=== PATIENT | male | born 1955 | race Caucasian/White ===

== ENCOUNTER → 2016-09-16 | Outpatient (CLI) | payer BC ==
[~2016-09-16] MED LIST: ASCO10003 PO; ASPEC325 PO; ASPI81TA28 PO; CRS10 PO; LISI-729 PO; LVNISUNK SQ; MAGNESIUM PO; METO25TA56 PO; NTRGSL/4 UT; OXYC-57 PO; PANT40TA PO; RXC5 PO
[2016-09-16 12:24] LABS: HEMATOCRIT 43.4 % (42-52); MEAN CELL VOLUME 97.1 fL (80-100); MEAN CORPUSCULAR HEMOGLOBIN 34.2 pg (25-34); MEAN CORPUSCULAR HGB CONC 35.3 g/dl (32-36); MEAN PLATELET VOLUME 11.3 fL (7.4-10.4); PLATELET COUNT 160 K/uL (130-400); RED BLOOD COUNT 4.47 M/uL (4.7-6.1); WHITE BLOOD COUNT 8.49 K/uL (4.8-10.8)
[2016-09-16 12:34] LABS: ALT/SGPT 23 U/L (12-78); AST/SGOT 8 U/L (15-37); BLOOD UREA NITROGEN 16 mg/dl (7-18); BUN/CREATININE RATIO 17.1 (10-20); CALCIUM 8.9 mg/dl (8.5-10.1); CARBON DIOXIDE 30 mmol/L (21-32); CHLORIDE 104 mmol/L (98-107); CREATININE 0.94 mg/dl (0.60-1.40); GLUCOSE 147 mg/dl (70-99); POTASSIUM 4.2 mmol/L (3.5-5.1); SODIUM 141 mmol/L (136-145)
[2016-09-16 12:39] LABS: ESTIMATED AVERAGE GLUCOSE 143 mg/dl; HA1C FLAG Normal (Normal)
[2016-09-16 12:43] LABS: ALB/GLOB RATIO 1.3 (0.9-2); ALKALINE PHOSPHATASE 95 U/L (45-117); CHOLESTEROL 217 mg/dl (0-200); CHOLESTEROL/HDL RATIO 4.4; HDL CHOLESTEROL 49 mg/dl; LDL CHOLESTEROL CALCULATED 121 mg/dl; TRIGLYCERIDES 233 mg/dl (0-150); VERY LOW DENSITY LIPOPROT CALC 47 mg/dl
[2016-09-16 13:12] LABS: RATIO 24.3 mcg/mg (0-30.0)
== END | disposition home or self-care (01) ==
LOC: C.LABBFT 07:36
PROVIDERS: ATTEND Internal Medicine
DX: I25.10 Atherosclerotic heart disease of native coronary artery without angina pectoris (principal); Z12.5 Encounter for screening for malignant neoplasm of prostate; E11.9 Type 2 diabetes mellitus without complications

== ENCOUNTER 2017-02-05 10:14 | Inpatient (IN) | payer BC, OTHER ==
[2017-01-27 08:44] VITALS: BMI 21.0
--- NOTE | 2017-01-27 09:21 | PAT Medication Instructions ---
Service Date Jan 27, 2017. Current Home Medication List Ascorbic Acid (Vitamin C), 1,000 MG PO QAM Aspirin (Aspirin Ec), 81 MG PO QAM Lisinopril (Zestril), 5 MG PO QAM Metoprolol Tartrate (Lopressor) (Lopressor), 25 MG PO QAM Nitroglycerin (Nitrostat), 0.4 MG UT PRN Oxycodone/Acetaminophen 5MG/325MG (Percocet 5MG/325MG), 1 TABLET PO Q4H PRN for Pain Pantoprazole (Protonix), 40 MG PO QAM Rosuvastatin Calcium (Crestor *), 10 MG PO QAM [Magnesium], 1 TAB PO PRN Medication Instructions For Your Scheduled Surgery - Check with surgeon/prescribing physician for instructions: Aspirin (Aspirin Ec), 81 MG PO QAM - Hold the following medications the morning of surgery: [Magnesium], 1 TAB PO PRN Lisinopril (Zestril), 5 MG PO QAM Ascorbic Acid (Vitamin C), 1,000 MG PO QAM - Take the following medications the morning of surgery with a sip of water: Rosuvastatin Calcium (Crestor *), 10 MG PO QAM Pantoprazole (Protonix), 40 MG PO QAM Metoprolol Tartrate (Lopressor) (Lopressor), 25 MG PO QAM Nitroglycerin (Nitrostat), 0.4 MG UT PRN (if needed) Oxycodone/Acetaminophen 5MG/325MG (Percocet 5MG/325MG), 1 TABLET PO Q4H PRN for Pain (okay to take up to 4 hours prior to surgery if needed) - Take the following medications as scheduled the night before surgery: [Magnesium], 1 TAB PO PRN Nitroglycerin (Nitrostat), 0.4 MG UT PRN Oxycodone/Acetaminophen 5MG/325MG (Percocet 5MG/325MG), 1 TABLET PO Q4H PRN for Pain (if needed) If you have any questions please call us at [phone] or [phone] or [phone]
--- NOTE | 2017-01-27 10:04 | DIAGNOSTIC IMAGING REPORT ---
CHEST PREADMISSION(PA/LAT) CLINICAL HISTORY: Preoperative chest COMPARISON STUDY: No previous studies for comparison. FINDINGS: The cardiac and mediastinal contours are normal. There is no evidence of focal pulmonary consolidation. There is no evidence of failure. No pleural effusions are visualized.[ Coronary stents are visualized. There is a scoliosis. There are moderate degenerative changes within the thoracic spine. IMPRESSION: No active disease in the chest. Electronically signed by: Tate Aldridge M.D. 01/27/2017 10:02 AM Dictated Date/Time: 01/27/2017 10:02 AM
[2017-01-27 10:50] LABS: URINE APPEARANCE CLEAR (CLEAR); URINE BILIRUBIN NEG (NEG); URINE COLOR YELLOW; URINE NITRITE NEG (NEG); URINE PH 5.5 (4.5-7.5); URINE SPECIFIC GRAVITY 1.011 (1.000-1.030); UROBILINOGEN NEG (NEG)
[2017-01-27 10:52] LABS: MANUAL MICROSCOPIC REQUIRED? NO; REVIEW REQ? NO
[2017-01-27 10:53] LABS: BASO % 0.3 %; BASO ABS # 0.02 K/uL (0-0.2); COMPLETE YES; EOS % 1.5 %; HEMATOCRIT 40.7 % (42-52); IG% 0.3 %; LYMPH % 19.8 %; LYMPH ABS # 1.32 K/uL (1.2-3.4); MEAN CELL VOLUME 94.7 fL (80-100); MEAN CORPUSCULAR HEMOGLOBIN 32.6 pg (25-34); MEAN CORPUSCULAR HGB CONC 34.4 g/dl (32-36); MEAN PLATELET VOLUME 10.5 fL (7.4-10.4); MONO % 8.8 %; NEUT % 69.3 %; PLATELET COUNT 166 K/uL (130-400); WHITE BLOOD COUNT 6.68 K/uL (4.8-10.8)
[2017-01-27 11:00] LABS: BUN/CREATININE RATIO 12.5 (10-20); POTASSIUM 4.2 mmol/L (3.5-5.1)
[2017-01-27 11:02] LABS: CALCIUM 9.4 mg/dl (8.5-10.1)
[2017-02-05] VITALS (8 sets, daily range): BP systolic 121–151; BP diastolic 68–89; PULSE 66–90; TEMP 36.5–36.9; O2SAT 91–100; Ht 172.7 cm; Wt 64.5 kg
[~2017-02-05] VITALS: Ht 172.7 cm; Wt 64.5 kg
[~2017-02-05 10:14] MED LIST changes: -ASPEC325 PO; +CEFAZOLIN 1000MG/55 ML D5W IV SCH; +LACTATED RINGER'S 1000ML 1,000 ML IV SCH; -LVNISUNK SQ; -RXC5 PO
--- NOTE | 2017-02-05 12:49 | History & Physical Bridge Note ---
H&P Re-Evaluation Bridge Note: I have examined the patient, reviewed the History & Physical and in the interval since the performance of the History & Physical I have noted the following changes of clinical significance: No changes noted
--- NOTE | 2017-02-05 12:51 | History and Physical ---
History & Physical Date Feb 05, 2017. Chief Complaint back and leg pain History of Present Illness The patient is a 61 year old male with complaints of Additional History Hepatic Disease: No Endocrine Disorder: No Kidney Disease: No Hypertension: No Heart Disease: No Bleeding Tendencies: No Infectious Diseases: No Allergies Coded Allergies: No Known Allergies (Unverified , 02/05/17) Home Medications Scheduled Ascorbic Acid (Vitamin C), 1,000 MG PO QAM Aspirin (Aspirin Ec), 81 MG PO QAM Lisinopril (Zestril), 5 MG PO QAM Metoprolol Tartrate (Lopressor) (Lopressor), 25 MG PO QAM Nitroglycerin (Nitrostat), 0.4 MG UT PRN Pantoprazole (Protonix), 40 MG PO QAM Rosuvastatin Calcium (Crestor *), 10 MG PO QAM [Magnesium], 1 TAB PO PRN Scheduled PRN Oxycodone/Acetaminophen 5MG/325MG (Percocet 5MG/325MG), 1 TABLET PO Q4H PRN for Pain Physical Examination Skin: warm/dry, no rash Eyes: normal inspection, EOMI, sclerae normal ENT: normal ENT inspection, pharynx normal Head: normocephalic, atraumatic Neck: supple, no adenopathy, trachea midline Respiratory/Chest: lungs clear, normal breath sounds, no respiratory distress Cardiovascular: regular rate, rhythm, no edema, no murmur Abdomen / GI: normal bowel sounds, non tender Back: normal inspection Extremities: normal inspection, normal range of motion Neurologic/Psych: no motor/sensory deficits, alert, normal reflexes, oriented x 3 Diagnosis lumbar stenosis Plan of Treatment decompression fusion L4-S1
[2017-02-05] MEDS ORDERED: MIDAZOLAM HCL 1 MG/ML 2ML VIAL ONE (12:52)
[2017-02-05] MEDS ORDERED: FENTANYL CITRATE INJ 50 MCG/1 ML 2 ML VIAL ONE ×4 (12:52→15:33)
[2017-02-05] MEDS ORDERED: SODIUM CHLORIDE 0.9% PF 50 ML VIAL ONE (13:11)
[2017-02-05] MEDS ORDERED: BACITRACIN 50000 UNIT VIAL ONE (13:11)
[2017-02-05] MEDS ORDERED: BUPIVACAINE/EPINEPHRINE 0.5% MPF 1:200,000 30 ML VIAL ONE (13:11)
[2017-02-05] MEDS ORDERED: HYDROmorphone INJ 2 MG/ML SYR/VIAL ONE ×2 (13:48→15:32)
[2017-02-05] MEDS ORDERED: ETOMIDATE 2 MG/ML 20 ML VIAL IV ONE (14:02)
[2017-02-05] MEDS ORDERED: ROCURONIUM BROMIDE 10 MG/ML 5 ML VIAL ONE (14:02)
[2017-02-05] MEDS ORDERED: NEOSTIGMINE METHYLSULFATE 1 MG/ML 10ML VIAL ONE (14:02)
[2017-02-05] MEDS ORDERED: PROPOFOL IV EMULSION 10 MG/ML 20 ML VIAL IV ONE (14:02)
[2017-02-05] MEDS ORDERED: PHENYLEPHRINE 100MCG/ML 5ML SYR ONE (14:02)
[2017-02-05] MEDS ORDERED: GLYCOPYRROLATE INJ 0.2 MG/ML VIAL ONE (14:02)
[2017-02-05] MEDS ORDERED: DEXAMETHASONE SOD INJ 4 MG/ML VIAL ONE (14:02)
[2017-02-05] MEDS ORDERED: ONDANSETRON INJ 2 MG/ML 2 ML VIAL ONE ×2 (14:02→15:25)
[2017-02-05] MEDS ORDERED: LIDOCAINE HCL 2% 2 ML VIAL (20MG/ML) ONE (14:02)
[2017-02-05] MEDS ORDERED: SODIUM CHLORIDE 0.9% 1000ML 1,000 ML IV SCH (15:10)
--- NOTE | 2017-02-05 15:10 | [facility] Post Operative Brief Note ---
Immediate Operative Summary Operative Date Feb 05, 2017. Pre-Operative Diagnosis Lumbar Stenosis Post-Operative Diagnosis Lumbar Stenosis Procedure(s) Performed decomp fusion Surgeon Dr. Lisa Dejesus Chemical Handler Surgeon(s) Magi Pineda PA-C Estimated Blood Loss 200 Findings stenosis Specimens none per surgeon
[2017-02-05] MEDS ORDERED: hydrOXYzine HCL 25 MG TAB PO PRN (15:15)
[2017-02-05] MEDS ORDERED: NALOXONE HCL 0.4 MG/1 ML VIAL/CARP IV PRN ×2 (15:15)
[2017-02-05] MEDS ORDERED: ONDANSETRON INJ 2 MG/ML 2 ML VIAL IV PRN ×2 (15:15→15:45)
[2017-02-05] MEDS ORDERED: MAGNESIUM HYDROXIDE SUSP 30 ML UDC PO PRN (15:15)
[2017-02-05] MEDS ORDERED: DO NOT ADMINISTER PNEUMOCOCCAL VACCINE PRN ×2 (15:15)
[2017-02-05] MEDS ORDERED: SOD PHOSPHATE/SOD BIPHOSPHATE ENEMA 132 ML BTL PR PRN (15:15)
[2017-02-05] MEDS ORDERED: LORAZEPAM INJ 0.5 MG in SYRINGE 0.75 ML IV PRN (15:15)
[2017-02-05] MEDS ORDERED: ALUMINUM/MAGNESIUM SUSP 30 ML UDC PO PRN (15:15)
[2017-02-05] MEDS ORDERED: BISACODYL 10 MG SUPP PR PRN (15:15)
[2017-02-05] MEDS ORDERED: LORAZEPAM 0.5 MG TAB PO PRN (15:15)
[2017-02-05] MEDS ORDERED: METOCLOPRAMIDE HCL INJ 5 MG/ML 2 ML VIAL IV PRN (15:15)
[2017-02-05] MEDS ORDERED: ACETAMINOPHEN 500 MG TAB PO PRN (15:15)
[2017-02-05] MEDS ORDERED: PROMETHAZINE HCL INJ 12.5 MG in SODIUM CHLORIDE 0.9% 50ML 50 ML IV PRN (15:15)
[2017-02-05] MEDS ORDERED: ACETAMINOPHEN IV 100 ML IV PRN (15:15)
[2017-02-05] MEDS ORDERED: FAMOTIDINE 20 MG TAB PO PRN (15:15)
[2017-02-05] MEDS ORDERED: DO NOT ADMINISTER FLU VACCINE PRN ×3 (15:15)
--- NOTE | 2017-02-05 15:20 | DIAGNOSTIC IMAGING REPORT ---
LUMBAR SPINE, INTRAOPERATIVE FLUOROSCOPY HISTORY: L4 S1 decompression and fusion. FLUOROSCOPY TIME: 23 seconds. FINDINGS: Intraoperative fluoroscopy was provided for the lumbar spine. 2 fluoroscopic spot images were obtained. Posterior decompression fusion from L4 through S1 with pedicle screws and rods. The hardware appears intact. IMPRESSION: Fluoroscopy provided for a L4-S1 posterior decompression and fusion. Electronically signed by: Festus Hogan M.D. 02/05/2017 3:18 PM Dictated Date/Time: 02/05/2017 3:18 PM
[2017-02-05] MEDS ORDERED: HYDROmorphone HCL 0.5MG/ML 50 ML CASSETTE ONE (15:30)
[2017-02-05] MEDS ORDERED: FLOSEAL HEMOSTATIC MATRIX 10ML TOP ONE (15:34)
[2017-02-05] MEDS ORDERED: EpHEDrine SULFATE INJ 50 MG/ML AMP IV PRN (15:45)
[2017-02-05] MEDS ORDERED: ATROPINE SULFATE 0.1 MG/ML 5ML SYR IV PRN (15:45)
[2017-02-05] MEDS ORDERED: PHENYLEPHRINE 100MCG/ML 5ML SYR IV PRN (15:45)
[2017-02-05] MEDS ORDERED: HYDROmorphone INJ 2 MG/ML SYR/VIAL IV PRN (15:45)
--- NOTE | 2017-02-05 15:50 | Anesthesiology Progress Note ---
Anesthesia Post Op Note Date & Time Feb 05, 2017 at 15:49 Vital Signs Pain Intensity: 4 Vital Signs Past 12 Hours Date Time Temp Pulse Resp B/P (MAP) Pulse Ox O2 Delivery O2 Flow Rate FiO2 02/05/17 15:21 36.7 85 16 155/84 100 Mask 10 02/05/17 11:05 36.5 69 18 131/89 99 Room Air Notes Mental Status: alert / awake / arousable, participated in evaluation Pt Amnestic to Procedure: Yes Nausea / Vomiting: adequately controlled Pain: adequately controlled Airway Patency, RR, SpO2: stable & adequate BP & HR: stable & adequate Hydration State: stable & adequate Anesthetic Complications: no major complications apparent
--- NOTE | 2017-02-05 15:53 | OPERATIVE REPORT ---
DATE OF OPERATION: 02/05/2017 PREOPERATIVE DIAGNOSIS: Spinal stenosis. POSTOPERATIVE DIAGNOSIS: Same. PROCEDURES PERFORMED: 1. Lumbar decompression, medial facetectomies, foraminotomies L3-L4, L4-L5, L5-S1. 2. Posterior spinal fusion L4-L5, L5-S1. 3. Placement posterior segmental instrumentation using Orthros rods and screws L4-L5 and L5-S1. 4. Placement of locally harvested morcellized autograft in posterior gutters. 5. Placement of Infuse collagen sponge combined with Mastergraft in Leah bone graft in the posterior gutters. SURGEON: Dr. Dejesus. PHOTOGRAPH FINISHER: Faye Pineda PA-C. Due to the complex nature of the procedure, the entire surgery was performed with the assistant cook of MINDA Padgett.? The observation assistant, under direct supervision, was involved in the actual performance of all aspects of the surgical procedure including hemostasis, tissue retraction and incision, instrument management, patient positioning, and wound closure. ANESTHESIA: General. DISPOSITION: The patient awakened and taken to PACU in stable condition. HISTORY OF PATIENT'S PROBLEMS: This is a 61-year-old male who presents with above-mentioned diagnosis. After failing an extensive course of nonoperative care, elected to undergo the above-mentioned procedure. Risks, benefits, pros, cons, and alternatives were outlined in detail preoperatively. DESCRIPTION OF PROCEDURE: The patient was met with preoperatively, case discussed and all questions were addressed. At that point the patient was taken back to operative suite and after undergoing successful general intubation by department of anesthesia, was placed in prone position on Miles table atop a Venu frame. All bony prominences were well padded and the eyes were inspected to ensure there was no external pressure placed upon them. At this point, lumbar spine was prepped and draped in normal sterile fashion. Sharp dissection with the assistance of Bovie cautery performed down to and exposing the lamina and transverse processes of L4, L5 and sacral ala bilaterally. From a caudal to cephalad fashion, complete laminectomy of L5, L4, partial laminectomy of L3 was performed including medial facetectomies, foraminotomies to address severe lateral recess and foraminal disease. After this was complete, pedicle screws were then placed in L4, L5 and S1 levels bilaterally with the assistance of fluoroscopy and appropriate size lilliam locked into place. This included a crosslink. Transverse processes of L4, L5 and sacral ala were then burred to subcortical bleeding bone. Infuse collagen sponge combined with Mastergraft and locally harvested morselized autograft was placed in the posterior gutters. A 7 flat ROSAURA drain was inserted. Incision was closed with 1-0 Vicryl in the fascia, 2-0 Vicryl subcutaneously, 4-0 Monocryl for final skin closure. Steri-Strips and sterile dressing were placed. The patient was awakened and taken to PACU in stable condition. I attest to the content of the Intraoperative Record and any orders documented therein. Any exception s are noted below.
[2017-02-05] MEDS: HYDROmorphone HCL 0.5MG/ML 50 ML CASSETTE IV PRN ×2 (16:18→23:12)
[2017-02-05] MEDS: LACTATED RINGER'S 1000ML 1,000 ML IV SCH ×2 (19:00→22:34)
[2017-02-05] MEDS: DOCUSATE SODIUM/SENNA 50/8.6MG TAB PO SCH (21:13)
[2017-02-05] MEDS: CEFAZOLIN IV 1,000 MG in DEXTROSE 5% 50ML 50 ML IV SCH (21:13)
[2017-02-05] MEDS: DEXAMETHASONE INJ 6 MG in SYRINGE 0 ML IV SCH (21:14)
[2017-02-06] VITALS (8 sets, daily range): BP systolic 105–137; BP diastolic 68–78; PULSE 70–108; TEMP 36.6–37.2; O2SAT 93–98
[2017-02-06] MEDS: CEFAZOLIN IV 1,000 MG in DEXTROSE 5% 50ML 50 ML IV SCH (03:45)
[2017-02-06] MEDS: DEXAMETHASONE INJ 6 MG in SYRINGE 0 ML IV SCH ×2 (03:46→11:51)
[2017-02-06] MEDS: LACTATED RINGER'S 1000ML 1,000 ML IV SCH (03:46)
[2017-02-06] MEDS ORDERED: NURSING DECISION MEDICATION ORDER SCH (06:00)
[2017-02-06] MEDS ORDERED: DC PCA SCH (06:00)
[2017-02-06] MEDS ORDERED: HYDROmorphone INJ 1 MG/ML SYR IV PRN (06:01)
[2017-02-06 07:10] LABS: COMPLETE YES; HEMATOCRIT 37.1 % (42-52); IG% 0.2 %; LYMPH % 4.7 %; LYMPH ABS # 0.51 K/uL (1.2-3.4); MEAN CELL VOLUME 94.6 fL (80-100); MEAN CORPUSCULAR HEMOGLOBIN 32.9 pg (25-34); MEAN CORPUSCULAR HGB CONC 34.8 g/dl (32-36); MEAN PLATELET VOLUME 10.4 fL (7.4-10.4); MONO % 3.2 %; NEUT % 91.9 %; PLATELET COUNT 156 K/uL (130-400); RED BLOOD COUNT 3.92 M/uL (4.7-6.1); WHITE BLOOD COUNT 10.76 K/uL (4.8-10.8)
[2017-02-06 07:41] LABS: BUN/CREATININE RATIO 16.2 (10-20); CALCIUM 9.1 mg/dl (8.5-10.1); CREATININE 0.94 mg/dl (0.60-1.40); POTASSIUM 4.5 mmol/L (3.5-5.1)
--- NOTE | 2017-02-06 07:49 | Anesthesiology Progress Note ---
Anesthesia Post Op Note Date & Time Feb 06, 2017 at 07:49 Vital Signs Pain Intensity: 3.0 Vital Signs Past 12 Hours Date Time Temp Pulse Resp B/P (MAP) Pulse Ox O2 Delivery O2 Flow Rate FiO2 02/06/17 03:16 36.6 79 16 137/75 (95) 94 Room Air 02/05/17 23:45 Room Air 02/05/17 23:25 36.7 82 16 132/75 (94) 91 Room Air 02/05/17 19:50 36.9 66 16 126/70 (88) 96 Room Air Notes Mental Status: alert / awake / arousable, participated in evaluation Pt Amnestic to Procedure: Yes Nausea / Vomiting: adequately controlled Pain: adequately controlled Airway Patency, RR, SpO2: stable & adequate BP & HR: stable & adequate Hydration State: stable & adequate Anesthetic Complications: no major complications apparent
[2017-02-06] MEDS ORDERED: RXC5 PO (10:50)
--- NOTE | 2017-02-06 10:51 | Discharge Instructions ---
Discharge Instructions Date of Service Feb 06, 2017. Admission Reason for Admission: Lumbar Spinal Stenosis Discharge Discharge Diagnosis / Problem: stenosis Discharge Goals Goal(s): Improve function Activity Recommendations Activity Limitations: per Instructions/Follow-up section . Instructions / Follow-Up Instructions / Follow-Up ACTIVITY RECOMMENDATIONS: SELF CARE INSTRUCTIONS AFTER THORACIC/LUMBAR FUSIONS 1. You may walk to your tolerance. It is good exercise for your legs and back. Expect some back and intermittent leg aches and pains. 2. You may perform "counter-top" level activities (make a sandwich, leana with a project, etc.). 3. No bending or lifting of more than 10 pounds or back twisting of any nature (roll like a log when turning in bed). 4. You may ride in a car for 20-30 minutes at a time. No driving until after your first visit with your doctor. 5. Frequent changes of position and restricting sitting to 30 minutes at a time will help limit the amount of back spasms and stiffness you may experience. 6. You may discontinue the use of ambulatory aids (cane, crutches, etc.) once your strength and confidence allow. 7. You may sequins winder the shower and let water strike your incision when you arrive home at least once daily. Do not take a tub bath, sit in a hot tub or go into a swimming pool until after your first recheck in the office. SPECIAL CARE INSTRUCTIONS: VERY IMPORTANT TO READ AND REVIEW A. Your surgical incision has been closed with a cosmetic suture under the skin that will dissolve in about 6 weeks. In 14 days, you can use a pair of clean scissors and cut the suture that is left outside of the skin at the ends of your incision. 1. The small skin tapes can be removed 7 days after surgery if they have not fallen off by that point. 2. You may keep the wound open to air as much as possible to promote healing after post-op day number 5 unless told otherwise by your doctor. 3. If you think the wound looks like it is becoming infected (redness or worsening drainage) and/or you are experiencing fever, chill or worsening back pain and muscle spasms, contact the office so that we may evaluate you as soon as possible. B. Complications are uncommon, but please contact us if you have any signs or symptoms of: 1. wound infection (fever higher than 102.5 degrees F, redness, separation of wound, drainage, or increasing pain from the incision) 2. blood clots in legs (pain, swelling, redness and warmth in legs) 3. urinary tract infection (fever higher than 102.5 degrees F, burning upon urination or increased frequency of urination) 4. nerve problems (inability to walk on your toes or heels, numbness, loss of bowel or bladder control) 5. any other symptoms that concern you C. Please call the office at if you have any concerns or questions about your operation or recovery. D. No smoking! Smoking drastically decreases the chance of a solid fusion. E. Do not take any anti-inflammatory medications (Indocin, Advil, Motrin, Aspirin, Naprosyn, etc.) as these may inhibit the chance of a solid fusion. Tylenol is okay to take for pain. MANAGING PAIN AFTER SPINAL SURGERY 1. Narcotic medication is intended for short-term use and will be provided for surgical pain. Surgical pain usually lasts for a period of 4-6 weeks. Narcotic medication includes Percocet, Vicodin, Darvocet, Tylenol #3 or Lortab. 2. Longer-term pain is more appropriately treated with non-narcotic medication such as Tylenol ES. 3. Muscle spasm is not appropriately treated with narcotics. Muscle relaxers such as Soma, Flexeril or Skelaxin can be used along with Tylenol ES. 4. Remember that we all live with some "aches and pains". This is not unusual or uncommon after an injury or as we get older. a. Back pain is expected and may include muscle spasms for 4 to 6 weeks after surgery. The pain should gradually improve. If the pain worsens for no apparent reason, please contact the office. b. Intermittent leg pain may also be experienced and should not be concerned about unless it worsens for no apparent reason. If so, please contact the office. 5. We will provide appropriate medication within the normal guidelines of their prescribed use. We will also be very cautious and aware of potential abuse and extended duration of patients' medication needs. a. Pain medications are for your comfort and to assist with sleep and rest so that the tissue can heal. They are not provided in order to return to normal activity and should not be used through the day. To do so or worsening pain at night can result from ongoing tissue damage and development of tolerance to the prescribed medicine. 6. Please allow 2-3 days to process refills. Prescriptions will not be mailed but must be picked up at the office. FOLLOW UP VISIT: Keep your scheduled follow-up appointment. Any questions, please call the office at . Current Hospital Diet Patient's current hospital diet: Regular Diet Discharge Diet Recommended Diet: Regular Diet Procedures Procedures Performed: L4-L5, L5-S1 Lumbar Laminectomy, Decompression; Pedicle Screw Fixation; L4-L5, L5-S1 Posterolateral Fusion; Bone Morphogenetic Protein; Application of Leah Pending Studies Studies pending at discharge: no Medical Emergencies . Who to Call and When: Medical Emergencies: If at any time you feel your situation is an emergency, please call 911 immediately. . Non-Emergent Contact Non-Emergency issues call your: Primary Care Provider . "Provider Documentation" section prepared by Romel Dejesus. . VTE Core Measure Inpt VTE Proph given/why not?: Kianna Ace, TINO's
[2017-02-06] MEDS: OXYCODONE HCL IR 5 MG TAB (IMMEDIATE RELEASE) PO PRN ×3 (11:18→20:44)
--- NOTE | 2017-02-06 11:33 | PROGRESS NOTE ---
DATE: 02/06/2017 DATE: 02/06/2017. SUBJECTIVE: Postop day 1. Back pain controlled. Leg pain improved. Vital signs stable. T-max 36.8. ROSAURA drained 105 mL. Hematocrit this a.m. is 37.1. OBJECTIVE: On exam, he has good strength to testing, appears comfortable. ASSESSMENT: Status post lumbar decompression and fusion. PLAN: At this time, will continue physical therapy, advance his bowel regimen and anticipate home Friday or Friday.
[2017-02-06] MEDS: DOCUSATE SODIUM/SENNA 50/8.6MG TAB PO SCH (20:45)
[2017-02-07] MEDS: OXYCODONE HCL IR 5 MG TAB (IMMEDIATE RELEASE) PO PRN ×6 (01:01→23:39)
[2017-02-07] MEDS: POLYETHYLENE (MIRALAX) 17 GM PACK PO SCH ×4 (05:33→23:37)
[2017-02-07 07:25] VITALS: BP 104/67; PULSE 84; TEMP 36.7; O2SAT 97
[2017-02-07] MEDS ORDERED: KETOROLAC TROMETHAMINE 30 MG/ML VIAL IV STA (11:17)
[2017-02-07] MEDS ORDERED: KETOROLAC TROMETHAMINE 30 MG/ML VIAL IV PRN (11:30)
[2017-02-07 15:32] VITALS: BP 104/63; PULSE 94; TEMP 37; O2SAT 92
--- NOTE | 2017-02-07 17:42 | PROGRESS NOTE ---
DATE: 02/07/2017 SUBJECTIVE: Postop day #2. Back pain controlled. Leg pain improved. Vital signs stable. T-max 36.7. ROSAURA drained 70 mL. On exam, he has good strength to testing, doing well. ASSESSMENT: Status post ____ and fever. PLAN: At this time, we will continue physical therapy and advance his bowel regimen and discharge home tomorrow.
[2017-02-07] MEDS: DOCUSATE SODIUM/SENNA 50/8.6MG TAB PO SCH (21:35)
[2017-02-07 23:07] VITALS: BP 127/77; PULSE 90; TEMP 37.5; O2SAT 94
[2017-02-08] MEDS: OXYCODONE HCL IR 5 MG TAB (IMMEDIATE RELEASE) PO PRN ×3 (04:59→13:03)
[2017-02-08] MEDS: POLYETHYLENE (MIRALAX) 17 GM PACK PO SCH (05:32)
[2017-02-08 07:40] VITALS: BP 107/68; PULSE 86; TEMP 36.9; O2SAT 97
[2017-02-08] MEDS ORDERED: CHLORPROMAZINE HCL INJ 25 MG/ML 2 ML AMP IM ONE ×2 (10:30→11:30)
[2017-02-08] MEDS ORDERED: PROCHLORPERAZINE IV ONE (11:00)
--- NOTE | 2017-02-08 11:19 | DISCHARGE SUMMARY ---
DATE OF DISCHARGE: 02/08/2017 PRINCIPAL DIAGNOSIS: Spinal stenosis. HOSPITAL COURSE FOLLOWS: On 02/05/2017, the patient underwent lumbar decompression and fusion, tolerated this well, and taken to the orthopedic floor postoperatively. Postop day #1, he was up and ambulatory, progressed well to postop day #2 and #3, subsequently discharged to home. Discharge orders and instructions found on the chart for further review.
[2017-02-08 11:48] VITALS: BP 107/68; PULSE 86; TEMP 36.9; O2SAT 97
== END 2017-02-08 14:31 | disposition home or self-care (01) | DRG 460 ==
LOC: C.ACU 10:14 → C.3E 10:46 → ENRESERV 15:57
PROVIDERS: ADMIT Orthopaedic Surgery Orthopaedic Surgery of the Spine; ATTEND Orthopaedic Surgery Orthopaedic Surgery of the Spine
PROC: 0SG10J1 Fusion of 2 or more Lumbar Vertebral Joints with Synthetic Substitute, Posterior Approach, Posterior Column, Open Approach (ICD-10-PCS; principal; 2017-02-05 12:45)
PROC: 0SG10AJ Fusion of 2 or more Lumbar Vertebral Joints with Interbody Fusion Device, Posterior Approach, Anterior Column, Open Approach (ICD-10-PCS; principal; 2017-02-05 12:45)
DX: M48.06 Spinal stenosis, lumbar region (principal); Z79.82 Long term (current) use of aspirin

== ENCOUNTER → 2017-02-21 | Outpatient (CLI) | payer BC ==
[~2017-02-21] MED LIST changes: -CEFAZOLIN 1000MG/55 ML D5W IV SCH; -LACTATED RINGER'S 1000ML 1,000 ML IV SCH; +RXC5 PO
[2017-02-21 12:45] LABS: BLOOD UREA NITROGEN 16 mg/dl (7-18)
== END | disposition home or self-care (01) ==
LOC: C.LABBFT 09:58
PROVIDERS: ATTEND Physician Assistant Medical
DX: M99.83 Other biomechanical lesions of lumbar region (principal)

== ENCOUNTER → 2017-03-28 | Outpatient (CLI) | payer BC ==
[2017-03-28 12:50] LABS: ALT/SGPT 22 U/L (12-78); AST/SGOT 12 U/L (15-37); BLOOD UREA NITROGEN 10 mg/dl (7-18); BUN/CREATININE RATIO 12.2 (10-20); CALCIUM 9.2 mg/dl (8.5-10.1); CARBON DIOXIDE 28 mmol/L (21-32); CHLORIDE 106 mmol/L (98-107); CHOLESTEROL 189 mg/dl (0-200); CREATININE 0.86 mg/dl (0.60-1.40); GLUCOSE 131 mg/dl (70-99); SODIUM 140 mmol/L (136-145)
[2017-03-28 12:53] LABS: ALKALINE PHOSPHATASE 118 U/L (45-117); CHOLESTEROL/HDL RATIO 4.5; HDL CHOLESTEROL 42 mg/dl; LDL CHOLESTEROL CALCULATED 118 mg/dl; TRIGLYCERIDES 146 mg/dl (0-150); VERY LOW DENSITY LIPOPROT CALC 29 mg/dl
[2017-03-28 13:08] LABS: ESTIMATED AVERAGE GLUCOSE 148 mg/dl; HA1C FLAG Normal (Normal)
== END | disposition home or self-care (01) ==
LOC: C.LABBFT 08:14
PROVIDERS: ATTEND Internal Medicine
DX: E11.9 Type 2 diabetes mellitus without complications (principal); E78.5 Hyperlipidemia, unspecified

== ENCOUNTER → 2017-05-28 | Outpatient (CLI) | payer BC ==
[2017-05-28 09:55] LABS: BLOOD UREA NITROGEN 14 mg/dl (7-18); CREATININE 0.88 mg/dl (0.60-1.40)
== END | disposition home or self-care (01) ==
LOC: C.LAB 06:56
PROVIDERS: ATTEND Otolaryngology
DX: H90.5 Unspecified sensorineural hearing loss (principal); H66.90 Otitis media, unspecified, unspecified ear

== ENCOUNTER → 2017-05-30 | Outpatient (CLI) | payer BC ==
[~2017-05-30] MED LIST changes: +GADAVIST IV PRN
--- NOTE | 2017-05-30 08:05 | DIAGNOSTIC IMAGING REPORT ---
MRI OF THE BRAIN COMBO INTERNAL AUDITORY CANAL PROTOCOL CLINICAL HISTORY: Right ear blockage and pain. Suspected nerve damage. COMPARISON STUDY: No priors. TECHNIQUE: MRI of the brain was performed utilizing various T1 and T2-weighted sequences in the axial, sagittal, and coronal planes. Contrast-enhanced sequences were acquired following the administration of 6 cc of Gadavist. Additional high-resolution imaging was performed to the skull base both pre and postcontrast for further assessment of the internal auditory canals. FINDINGS: Brain parenchyma: There is minimal subcortical and periventricular microangiopathic disease. The brain parenchyma is otherwise normal in appearance. There is no hemorrhage or mass effect. There is no restricted diffusion to suggest acute ischemia. No enhancing mass lesion is identified on the postcontrast images. Pierson-white matter differentiation is preserved. No extra-axial fluid collection is seen. The cerebellar tonsils are normal in configuration. Ventricles, sulci, and cisterns: Normal in configuration. Internal auditory canals: There is no enhancing mass lesion identified in the cerebellopontine angle bilaterally. No mass or abnormal enhancement is seen along the course of the internal auditory canals. The middle ear structures are normal as visualized. Pituitary and sella: Unremarkable. Intracranial vasculature: Normal flow voids are maintained at the skull base. Orbits: The bony orbits are grossly intact. Orbital contents are normal in appearance. Sinuses and mastoids: Clear. Calvarium: Unremarkable. Cervical cord: Partially visualized cervical spinal cord is normal in morphology and signal intensity. IMPRESSION: 1. No acute intracranial abnormality. 2. Unremarkable MRI assessment of the internal auditory canals. Electronically signed by: Ramon Conti M.D. 05/30/2017 8:04 AM Dictated Date/Time: 05/30/2017 7:56 AM
== END | disposition home or self-care (01) ==
LOC: C.MRIBC 06:36
PROVIDERS: ATTEND Otolaryngology
DX: H69.80 Other specified disorders of Eustachian tube, unspecified ear (principal)

== ENCOUNTER → 2017-10-21 | Outpatient (CLI) | payer BC ==
[~2017-10-21] MED LIST changes: -GADAVIST IV PRN
[2017-10-21 12:15] LABS: HEMATOCRIT 42.2 % (42-52); HEMOGLOBIN 14.1 g/dL (14.0-18.0); MEAN CELL VOLUME 93.8 fL (80-100); MEAN CORPUSCULAR HEMOGLOBIN 31.3 pg (25-34); MEAN CORPUSCULAR HGB CONC 33.4 g/dl (32-36); MEAN PLATELET VOLUME 10.6 fL (7.4-10.4); PLATELET COUNT 152 K/uL (130-400); RED CELL DISTRIBUTION WIDTH CV 12.7 % (11.5-14.5); RED CELL DISTRIBUTION WIDTH SD 43.5 fL (36.4-46.3); WHITE BLOOD COUNT 5.53 K/uL (4.8-10.8)
[2017-10-21 12:54] LABS: ALBUMIN 3.7 gm/dl (3.4-5.0); ALT/SGPT 19 U/L (12-78); AST/SGOT 12 U/L (15-37); BLOOD UREA NITROGEN 20 mg/dl (7-18); CALCIUM 8.8 mg/dl (8.5-10.1); CARBON DIOXIDE 28 mmol/L (21-32); CREATININE 0.88 mg/dl (0.60-1.40); GLUCOSE 137 mg/dl (70-99); POTASSIUM 4.1 mmol/L (3.5-5.1); SODIUM 138 mmol/L (136-145)
[2017-10-21 13:05] LABS: ALKALINE PHOSPHATASE 136 U/L (45-117); CHOLESTEROL 168 mg/dl (0-200); LDL CHOLESTEROL CALCULATED 105 mg/dl
[2017-10-21 13:51] LABS: HEMOGLOBIN A1C 6.8 % (4.5-5.6)
[2017-10-21 14:03] LABS: CREATININE RANDOM URINE 74.4 mg/dl
== END | disposition home or self-care (01) ==
LOC: C.LABBFT 07:20
PROVIDERS: ATTEND Internal Medicine
DX: E11.9 Type 2 diabetes mellitus without complications (principal); Z12.5 Encounter for screening for malignant neoplasm of prostate

== ENCOUNTER → 2017-12-23 | Day surgery (SDC) | payer BC ==
[2017-12-17 09:29] VITALS: Ht 172.7 cm; Wt 65.0 kg
[~2017-12-23] VITALS: Ht 172.7 cm; Wt 65.0 kg
[~2017-12-23] MED LIST changes: -CRS10 PO; +LIDOCAINE HCL 2% 2 ML VIAL (20MG/ML) ONE; -MAGNESIUM PO; -OXYC-57 PO; +PROPOFOL IV EMULSION 10 MG/ML 20 ML VIAL ONE; -RXC5 PO; +SODIUM CHLORIDE 0.9% 500ML 500 ML IV ONE
--- NOTE | 2017-12-23 11:51 | Endo History and Physical ---
History & Physical Date of Service: December 23, 2017. Chief Complaint: F/u Tubular Adenoma Referring Physician: Nadeem Holliday History of Present Illness 62 yo CM who presents for colonoscopy secondary to history of colon polyps. Past Surgical History Hx Cardiac Surgery: Yes (HEART CATH/1 STENT) Hx Internal Defibrillator: No Hx Pacemaker: No Hx Abdominal Surgery: Yes (KAYLEIGH, INGUINAL HERNIA, BILAT INGUINAL HERNIA REPAIR ) Hx of Implantable Prosthesis: No Hx Post-Op Nausea and Vomiting: No Hx Cancer Surgery: No Hx Thoracic Surgery: No Hx Orthopedic: Yes (LUMBAR FUSION) Hx Urinary Tract Surgery: No Family History None Social History Smoking Status: Former Smoker Hx Substance Use: No Hx Alcohol Use: Yes (RARELY) Allergies Coded Allergies: No Known Allergies (Unverified , 12/17/17) Current Medications Reported Home Medications Medications Dose Route/Sig Max Daily Dose Days Date Category Vitamin C (Ascorbic Acid) 1,000 Mg Tab 1,000 Mg PO QAM 01/27/17 Reported Protonix (Pantoprazole Sodium) 40 Mg Tab 40 Mg PO QAM 01/27/17 Reported Nitrostat (Nitroglycerin) 0.4 Mg Tab 0.4 Mg UT PRN 01/27/17 Reported Lopressor (Metoprolol Tartrate) 25 Mg Tab 25 Mg PO BID 01/27/17 Reported Aspirin Ec (Aspirin) 81 Mg Tab 81 Mg PO QAM 01/27/17 Reported Zestril (Lisinopril) 5 Mg Tab 5 Mg PO QAM 10/11/11 Reported Vital Signs Weight (Kilograms): 65 Height (Feet): 5 Height (Inches): 8 Date Time Temp Pulse Resp B/P (MAP) Pulse Ox O2 Delivery O2 Flow Rate FiO2 12/23/17 11:08 36.6 70 16 129/79 (96) 96 Room Air Physical Exam General Appearance: WD/WN, no apparent distress Respiratory/Chest: Auscultation: breath sounds normal Cardiovascular: Heart Auscultation: RRR Abdomen: Bowel Sounds: normal Inspection & Palpation: soft, non-distended, no tenderness, guarding & rebound Assessment and Plan Assessment: 62 yo CM who presents for colonoscopy secondary to history of colon polyps. Plan: Proceed with colonoscopy.
--- NOTE | 2017-12-23 12:20 | Discharge Instructions ---
Endoscopy Patient Instructions Date / Procedure(s) Performed December 23, 2017. Colonoscopy Allergy Information Coded Allergies: No Known Allergies (Unverified , 12/17/17) Discharge Date / Findings December 23, 2017. Diverticulosis Internal hemorrhoids Medication Instructions Stopped Medication(s): ASA last 12/20/17 OK to resume all medications today as prescribed Reported Home Medications Medications Dose Route/Sig Max Daily Dose Days Date Category Vitamin C (Ascorbic Acid) 1,000 Mg Tab 1,000 Mg PO QAM 01/27/17 Reported Protonix (Pantoprazole Sodium) 40 Mg Tab 40 Mg PO QAM 01/27/17 Reported Nitrostat (Nitroglycerin) 0.4 Mg Tab 0.4 Mg UT PRN 01/27/17 Reported Lopressor (Metoprolol Tartrate) 25 Mg Tab 25 Mg PO BID 01/27/17 Reported Aspirin Ec (Aspirin) 81 Mg Tab 81 Mg PO QAM 01/27/17 Reported Zestril (Lisinopril) 5 Mg Tab 5 Mg PO QAM 10/11/11 Reported Provider Instructions Activity Restrictions - No exercising or heavy lifting for 24 hours. - Do not drink alcohol the day of the procedure. - Do not drive a car or operate machinery until the day after the procedure. - Do not make any important decisions or sign important papers in 24 hours after the procedure. Following Day: - Return to full activity which may include returning to work/school. Diet Start your diet with liquids and light foods (jello, soup, juice, toast). Then eat your usual diet if not nauseated. Treatment For Common After Affects For mild abdominal pain, bloating, or excessive gas: - Rest - Eat lightly - Lie on right side Follow-Up Information Follow-up with Nadeem Holliday as scheduled Anesthesia Information What You Should Know You have had a procedure that required some medicine to reduce anxiety and discomfort. This treatment is called moderate sedation. After receiving the treatment, you may be sleepy, but you will be able to breathe on your own. The effects of the treatment may last for several hours. Follow these instructions along with Activity/Diet recommendations noted above: * Do NOT do anything where dizziness or clumsiness would be dangerous. * Rest quietly at home today, then you can be up and about tomorrow. * Have a responsible person stay with you the rest of today. * You may have had an I.V. today. If so, you may take the dressing off later today. Recommendations Call your doctor if: * Trouble breathing * Continuous vomiting for more than 24 hours * Temperature above 101 degrees * Severe abdominal pain or bloating * Pain not relieved by pain medicine ordered * There is increased drainage or redness from any incision * A large amount of rectal bleeding greater than 2-3 tablespoons. (If you had a polyp/s removed or have hemorrhoids, a small amount of blood - from the rectum is to be expected.) * You have any unanswered questions or concerns. IN THE EVENT OF A SERIOUS EMERGENCY, GO TO THE NEAREST EMERGENCY ROOM Your discharge instructions were prepared by provider Montana Gómez. Patient Instructions Signature Page Jaime Pressley Patient (or Guardian) Signature/Date: I have read and understand the instructions given to me by my caregivers. Caregiver/RN/Doctor Signature/Date: The above-named patient and/or guardian has received patient instructions on this date. + Original Patient Signature Page (only) stays with chart. Please make copy for patient.
--- NOTE | 2017-12-23 12:24 | GI REPORT ---
Patient Name: Jaime Pressley Procedure Date: 12/23/2017 12:00 PM Date of : 1955 Admit Type: Outpatient Age: 62 Gender: Male Attending MD: Montana Gómez DO Procedure: Colonoscopy Providers: Montana Gómez DO Referring MD: Nadeem Holliday Indications: High risk colon cancer surveillance: Personal history of colonic polyps Medicines: Monitored Anesthesia Care Complications: No immediate complications. Estimated Blood Loss: Estimated blood loss: none. Procedure: Pre-Anesthesia Assessment: - Prior to the procedure, a History and Physical was performed, and patient medications and allergies were reviewed. The patient's tolerance of previous anesthesia was also reviewed. The risks and benefits of the procedure and the sedation options and risks were discussed with the patient. All questions were answered, and informed consent was obtained. Prior Anticoagulants: The patient has taken aspirin, last dose was 2 days prior to procedure. ASA Grade Assessment: III - A patient with severe systemic disease. After reviewing the risks and benefits, the patient was deemed in satisfactory condition to undergo the procedure. After I obtained informed consent, the scope was passed under direct vision. Throughout the procedure, the patient's blood pressure, pulse, and oxygen saturations were monitored continuously. The scope was introduced through the anus and advanced to the terminal ileum. The colonoscopy was performed without difficulty. The patient tolerated the procedure well. The quality of the bowel preparation was good. The terminal ileum, ileocecal valve, appendiceal orifice, and rectum were photographed. Findings: The perianal and digital rectal examinations were normal. Scattered small and large-mouthed diverticula were found in the entire colon. Non-bleeding internal hemorrhoids were found during retroflexion. The hemorrhoids were small. Impression: - Diverticulosis in the entire examined colon. - Non-bleeding internal hemorrhoids. - No specimens collected. Recommendation: - Resume previous diet. - Continue present medications. - Repeat colonoscopy in 5 years for surveillance. - Return to primary care physician as previously scheduled. Montana Gómez DO 12/23/2017 12:23:50 PM This report has been signed electronically. Note Initiated On: 12/23/2017 12:00 PM Number of Addenda: 0 I attest to the content of the Intraoperative Record and orders documented therein, exceptions below {[id number]}
[2017-12-23 12:59] VITALS: BP 118/73; PULSE 70; O2SAT 98
--- NOTE | 2017-12-23 13:29 | Anesthesiology Progress Note ---
Anesthesia Post Op Note Date & Time December 23, 2017 at 13:29 Vital Signs Pain Intensity: 0 Vital Signs Past 12 Hours Date Time Temp Pulse Resp B/P (MAP) Pulse Ox O2 Delivery O2 Flow Rate FiO2 12/23/17 12:59 70 18 118/73 (88) 98 Room Air 12/23/17 12:44 80 18 120/73 (89) 95 Room Air 12/23/17 12:29 72 18 102/68 (79) 97 Room Air 12/23/17 11:08 36.6 70 16 129/79 (96) 96 Room Air Notes Mental Status: alert / awake / arousable, participated in evaluation Pt Amnestic to Procedure: Yes Nausea / Vomiting: adequately controlled Pain: adequately controlled Airway Patency, RR, SpO2: stable & adequate BP & HR: stable & adequate Hydration State: stable & adequate Anesthetic Complications: no major complications apparent
== END | disposition home or self-care (01) ==
LOC: C.GI 10:36
PROVIDERS: ATTEND Internal Medicine
DX: Z12.11 Encounter for screening for malignant neoplasm of colon (principal); K57.30 Diverticulosis of large intestine without perforation or abscess without bleeding; K64.8 Other hemorrhoids; Z86.010 Personal history of colon polyps; I25.10 Atherosclerotic heart disease of native coronary artery without angina pectoris; I10 Essential (primary) hypertension; K21.9 Gastro-esophageal reflux disease without esophagitis; Z86.711 Personal history of pulmonary embolism; Z79.899 Other long term (current) drug therapy; Z79.82 Long term (current) use of aspirin; Z87.891 Personal history of nicotine dependence; I25.2 Old myocardial infarction

== ENCOUNTER 2022-02-24 13:25 | Observation (INO) ==
[2022-02-24] MEDS ORDERED: SODIUM CHLORIDE 0.9% 1000ML 1,000 ML IV SCH (14:15)
[2022-02-24] MEDS ORDERED: ASPIRIN CHEW 324 MG PO STA (14:18)
--- NOTE | 2022-02-24 14:27 | Emergency Department Note ---
Impression & Plan Chest pain, Syncope, Head injury ED Provider Note NAME: LUCINDA TESFAYE AGE: 66 SEX: M : 1955 ARRIVES VIA: Ambulance INFORMANT: Patient, ED PROVIDER(S): Blas Raymundo DO CHIEF COMPLAINT: Chest pain HPI: The patient is a 66-year-old male who presented to the emergency department for an evaluation of chest pain. The patient arrived via ALS. He states that he was outside pulling weeds in his garden this morning. States that he was not overly exerting himself but feels as though he was working hard. He states that when he came in for the outside he started noticing discomfort in his left upper chest. He states the pain continued even though he sat down and started to rest. He has a remote history of tobacco use as well as coronary artery disease. He has a history of a stent because of a cardiac catheterization many years ago. He did quit using tobacco products. He states he has nitroglycerin at home which he has never had to use especially over the course of the last 6 to 12 months. He states he took the nitroglycerin and started feeling much better. His significant other asked him if he would have something to eat. He got up to go to the kitchen when he had a syncopal episode. His significant other states that she witnessed 2 syncopal episodes 1 of which where he struck his head. The patient denies having any nausea or vomiting at this time. He denies having any headache. He states the pain at this time is much better. He has no chest discomfort. He also has a history of pulmonary embolism which was secondary to postoperative having his gallbladder out. He states he has no dif ficulty breathing and has no pain with deep inspiration. The patient has not recently been seen by his doctor. He states he feels much better at this time. ROS: See above HPI for pertinent positives & negatives. A total of 10 systems reviewed and were otherwise negative. PAST MEDICAL HISTORY: See Below PAST SURGICAL HISTORY: See Below FAMILY HISTORY: See Below SOCIAL HISTORY: See Below HOME MEDICATIONS: See Below ALLERGIES: See Below VITALS: See Below PHYSICAL EXAMINATION: GENERAL: Patient is awake alert in no acute distress patient is resting comfortably and showing no signs of anxiety EYES: The conjunctivae are clear. The pupils are round and reactive. EARS, NOSE, MOUTH AND THROAT: The nose is without any evidence of any deformity. Mucous membranes are moist. There is an abrasion over the right side of the forehead. No active bleeding was noted. NECK: The neck is nontender and supple. RESPIRATORY: Normal respiratory effort is noted there is no evidence of wheezing rhonchi or rales CARDIOVASCULAR: Regular rate and rhythm noted there no murmurs rubs or gallops normal S1 normal S2. GASTROINTESTINAL: The abdomen is soft. Abdomen is nontender. MUSCULOSKELETAL/EXTREMITIES: There is no evidence of gross deformity full range of motion is noted in the hips and shoulders. SKIN: There is no obvious evidence of any rash. There are no petechiae, pallor or cyanosis noted. NEUROLOGIC: Patient is awake alert and oriented x3 strength is symmetric pat ellar reflexes are 2+ bilaterally MEDICAL DECISION MAKING: The patient is a 66-year-old male who presented to the emergency department for an evaluation of chest pain. The patient started having chest pain after working in his garden. He took nitroglycerin and then had a syncopal episode. The patient does have a history of pulmonary embolism in the past. His presentation today does not appear to be consistent with PE. He has no difficulty breathing or pain with with breathing. At this time he has no chest pain at all. The patient had an EKG that showed no change from previous and cardiac biomarker was negative x2. I discussed the patient's condition with the on-call [facility] circulator. I discussed the limitations of the emergency department work-up for chest pain with him. Ultimately the patient was felt to be at high risk. For this reason I discussed this case with the on- call [facility] hospitalist. They have agreed to evaluate the patient in the emergency department for further management and disposition. Triage Nursing notes reviewed. Prior medical records reviewed Vital Signs: reviewed and remarkable for no significant abnormalities Differential diagnosis: Cardiac ischemia, aortic dissection, pulmonary embolism, pneumothorax, pneumonia, pericarditis, myocarditis, esophageal rupture, GERD, cholecystitis, pancreatitis, musculoskeletal, as well as other pathologies. ER treatment provided: See below Diagnostics interpreted by me: ECG: EKG was obtained in the emergency department. My interpretation is sinus bradycardia 55 bpm. There is no ectopy. LVH was suggested by voltage criteria. Nonspecific ST and T wave abnormalities were noted in the lateral leads. This was compared to a tracing from January 27, 2017. The ST and T wave abnormalities are new compared the previous tracing. The prehospital EKG was also evaluated. My interpretation is sinus rhythm. Approximately [address] and T wave abnormalities are still appreciated in the lateral leads. Cardiac Monitoring: An order was placed for continuous cardiac monitoring. The monitor shows a rate of 53 beats per minute with sinus rhythm. Laboratory studies: As stated above and show below. Imaging studies: See below Consultation(s): Discussed this case with Dr. Solano on-call for the [facility] cardiology group. Discussed this case with Dr. Flynn who is on-call for the [facility] hospitalist group. Past Med/Surg History Medical History Borderline diabetes BPH (benign prostatic hyperplasia) GERD (gastroesophageal reflux disease) Hearing loss in right ear Hypertension Migraine Myocardial Infarction 11/1998--follows with [facility] Preoperative cardiovascular examination Pulmonary embolism 2012 couple days after cholecysectomy--no blood thinners Spinal stenosis Surgical History History of bilateral inguinal hernia repair (~1961) [place] [facility] [place] History of cholecystectomy History of colonoscopy History of esophagogastroduodenoscopy (EGD) History of heart artery stent 11/1998 History of lumbar spinal fusion History of repair of left rotator cuff History of right inguinal hernia repair History of tonsillectomy and adenoidectomy History of tooth extraction all upper teeth Family History Brother Family history of diabetes mellitus Hypertension Father Hypertension Heart disease Hypercholesterolemia Mother Heart disease Hypertension Hypercholesterolemia Other No family history of adverse response to anesthesia Denies family history of Prostate cancer Diabetes Colorectal cancer Social History Smoking Status: Former smoker Tobacco Type: Cigarettes Age Started Using Tobacco: 9; Age Quit Using Tobacco: 52; packs per day: 3.5; Years Smoked: 43; Number of Years Since Quit: 12; Second Hand Exposure: Yes (parents smoked); Hx Alcohol Use: No Hx Substance Use: No Preferred Language: Spanish Communication Ability: Effective Slab Tripper Required: No Beliefs That Will Affect Care: None Current Living Situation: Spouse and Family Current Living Situation Comment: Lives with and daughter Feels Safe at Home: Yes caffeine: Yes Physical Activity Frequency: 3-4 Times per Week Physical Activity Frequency Comment: [employer] (eliptical, free weights, treadmill) Seatbelt Use: always Sunscreen Use: Yes Assistive Devices: Denture - Upper and Glasses Allergies Allergies Allergy/AdvReac Type Severity Reaction Status Date / Time No Known Allergies Allergy Verified 02/24/22 18:07 Home Meds Home Medications Medication Instructions Recorded Confirmed aspirin 81 mg tablet,delayed 81 mg PO QAM 07/28/19 02/24/22 release sildenafil (pulm.hypertension) 20 See Rx Instructions PO ONCE PRN 07/26/20 02/24/22 mg tablet acetaminophen 500 mg tablet 500 mg PO TID PRN 05/04/21 02/24/22 Previous Rx's Medication Instructions Recorded ibuprofen 600 mg tablet 600 mg PO BID #60 tab 05/21/21 rosuvastatin 40 mg tablet 40 mg PO QAM #90 tab 06/22/21 pantoprazole 40 mg tablet,delayed 40 mg PO DAILY #30 tab 12/24/21 release nitroglycerin 0.4 mg sublingual 0.4 mg SL Q5M PRN #25 tab 02/06/22 tablet Results & Data (ED) Vital Signs Vital Signs - 24 hr 02/24/22 13:29 02/24/22 13:40 02/24/22 14:22 Temperature 36.4 C L Temperature Source Oral Pulse Rate 61 Pulse Rate [Apical] Respiratory Rate 16 Respiratory Effort / Characteristics Non-Labored Spontaneous Respiratory Depth Normal Respiratory Pattern Regular Blood Pressure 123/58 L Blood Pressure [Right Arm] Blood Pressure Mean 79 Blood Pressure Mean [Right Arm] Blood Pressure Position Lying Blood Pressure Position [Right Arm] Pulse Oximetry 98 Oxygen Delivery Method Room Air Room Air Room Air Sepsis Recent Fever Within 48 Hours No Sepsis New/Unexplained Change in Mental Status No Sepsis Action Taken by Nursing No Action Required 02/24/22 14:24 02/24/22 15:29 02/24/22 16:58 Temperature Temperature Source Pulse Rate Pulse Rate [Apical] 60 56 L 60 Respiratory Rate 16 16 16 Respiratory Effort / Characteristics Non-Labored Spontaneous Non-Labored Spontaneous Non-Labored Spontaneous Respiratory Depth Normal Normal Normal Respiratory Pattern Blood Pressure Blood Pressure [Right Arm] 123/58 L 123/58 L 123/58 L Blood Pressure Mean Blood Pressure Mean [Right Arm] 79 79 79 Blood Pressure Position Blood Pressure Position [Right Arm] Lying Lying Lying Pulse Oximetry 98 97 98 Oxygen Delivery Method Room Air Room Air Room Air Sepsis Recent Fever Within 48 Hours Sepsis New/Unexplained Change in Mental Status Sepsis Action Taken by Nursing 02/24/22 18:06 02/24/22 19:35 02/24/22 20:14 Temperature Temperature Source Pulse Rate 53 L Pulse Rate [Apical] 61 56 L Respiratory Rate 16 20 20 Respiratory Effort / Characteristics Non-Labored Spontaneous Respiratory Depth Normal Respiratory Pattern Regular Blood Pressure 136/78 Blood Pressure [Right Arm] 136/78 136/78 Blood Pressure Mean Blood Pressure Mean [Right Arm] 97 97 Blood Pressure Position Blood Pressure Position [Right Arm] Lying Pulse Oximetry 98 98 96 Oxygen Delivery Method Room Air Sepsis Recent Fever Within 48 Hours Sepsis New/Unexplained Change in Mental Status Sepsis Action Taken by [facility]dc Medications Current Medication List: was personally reviewed by me Laboratory Data Attestation: I reviewed the patient's lab results. Result diagrams: 02/24/22 13:35 02/24/22 13:35 Lab Results 02/24/22 02/24/22 02/24/22 Range/Units 13:35 13:35 13:35 WBC 4.18 L (4.8-10.8) K/uL RBC 4.16 L (4.7-6.1) M/uL Hgb 13.3 L (14.0-18.0) g/dL Hct 39.0 L (42-52) % MCV 93.8 (80-100) fL MCH 32.0 (25-34) pg MCHC 34.1 (32-36) g/dL RDW Std Deviation 41.3 (36.4-46.3) fL RDW Coeff of Chelsie 12.2 (11.5-14.5) % Plt Count 131 (130-400) K/uL MPV 10.6 H (7.4-10.4) fL Immature Gran % (Auto) 0.2 % Neut % (Auto) 56.6 % Lymph % (Auto) 30.1 % [place] % (Auto) 10.0 % Eos % (Auto) 2.6 % Baso % (Auto) 0.5 % Neut # (Auto) 2.36 (1.4-6.5) K/uL Lymph # (Auto) 1.26 (1.2-3.4) K/uL [place] # (Auto) 0.42 (0.11-0.59) K/uL Eos # (Auto) 0.11 (0-0.5) K/uL Baso # (Auto) 0.02 (0-0.2) K/uL Immature Gran # (Auto) 0.01 (0.00-0.02) K/uL PT 10.6 (9.0-12.0) Seconds INR 1.0 (0.9-1.1) APTT 23.0 (21.0-31.0) Seconds PTT Ratio 0.8 Sodium 140 (136-145) mmol/L Potassium 4.3 (3.5-5.1) mmol/L Chloride 107 (98-107) mmol/L Carbon Dioxide 28 (21-32) mmol/L Anion Gap 5 (3-11) BUN 17 (6-23) mg/dl Creatinine 0.91 (0.6-1.4) mg/dl Est Cr Clr Drug Dosing 68.6 ml/min Est GFR ( Amer) 100.0 ml/min Est GFR (Non-Af Amer) 86.3 ml/min BUN/Creatinine Ratio 18.7 (10-20) Glucose 150 H (70-99(Fasting)) mg/dl Calcium 8.9 (8.5-10.1) mg/dl Magnesium 1.8 (1.7-2.4) mg/dl Total Bilirubin 0.6 (0.2-1.0) mg/dl AST 16 (13-39) U/L ALT 11 (7-52) U/L Alkaline Phosphatase 87 (34-104) U/L Total Creatine Kinase 80 (30-223) U/L Troponin I High Sens 8.5 (0-20) pg/ml Total Protein 6.4 (6.0-8.3) gm/dl Albumin 4.1 (3.4-5.0) gm/dl Globulin 2.3 L (2.5-4.0) gm/dl Albumin/Globulin Ratio 1.8 (0.9-2) Lipase 16 (11-82) U/L TSH (0.300-4.500) uIu/ml Urine Color Urine Appearance (Clear) Urine pH (4.5-7.5) Ur Specific Barnum (1.000-1.030) Urine Protein (Negative) Urine Glucose (UA) (Negative) Urine Ketones (Negative) Urine Blood (Negative) Urine Nitrite (Negative) Urine Bilirubin (Negative) Urine Urobilinogen (Negative) Ur Leukocyte Esterase (Negative) Urine WBC (Auto) (0-5) /hpf Urine RBC (Auto) (0-4) /hpf U Hyaline Cast (Auto) (0-5) /lpf U Epithel Cells (Auto) (0-5) /lpf Urine Bacteria (Auto) (Negative) SARS-CoV-2, RNA, NAAT (NEGATIVE) 02/24/22 02/24/22 02/24/22 Range/Units 13:35 15:55 16:56 WBC (4.8-10.8) K/uL RBC (4.7-6.1) M/uL Hgb (14.0-18.0) g/dL Hct (42-52) % MCV (80-100) fL MCH (25-34) pg MCHC (32-36) g/dL RDW Std Deviation (36.4-46.3) fL RDW Coeff of Chelsie (11.5-14.5) % Plt Count (130-400) K/uL MPV (7.4-10.4) fL Immature Gran % (Auto) % Neut % (Auto) % Lymph % (Auto) % [place] % (Auto) % Eos % (Auto) % Baso % (Auto) % Neut # (Auto) (1.4-6.5) K/uL Lymph # (Auto) (1.2-3.4) K/uL [place] # (Auto) (0.11-0.59) K/uL Eos # (Auto) (0-0.5) K/uL Baso # (Auto) (0-0.2) K/uL Immature Gran # (Auto) (0.00-0.02) K/uL PT (9.0-12.0) Seconds INR (0.9-1.1) APTT (21.0-31.0) Seconds PTT Ratio Sodium (136-145) mmol/L Potassium (3.5-5.1) mmol/L Chloride (98-107) mmol/L Carbon Dioxide (21-32) mmol/L Anion Gap (3-11) BUN (6-23) mg/dl Creatinine (0.6-1.4) mg/dl Est Cr Clr Drug Dosing ml/min Est GFR ( Amer) ml/min Est GFR (Non-Af Amer) ml/min BUN/Creatinine Ratio (10-20) Glucose (70-99(Fasting)) mg/dl Calcium (8.5-10.1) mg/dl Magnesium (1.7-2.4) mg/dl Total Bilirubin (0.2-1.0) mg/dl AST (13-39) U/L ALT (7-52) U/L Alkaline Phosphatase (34-104) U/L Total Creatine Kinase (30-223) U/L Troponin I High Sens 8.7 (0-20) pg/ml Total Protein (6.0-8.3) gm/dl Albumin (3.4-5.0) gm/dl Globulin (2.5-4.0) gm/dl Albumin/Globulin Ratio (0.9-2) Lipase (11-82) U/L TSH 2.746 (0.300-4.500) uIu/ml Urine Color Yellow Urine Appearance Clear (Clear) Urine pH 5.0 (4.5-7.5) Ur Specific Barnum 1.017 (1.000-1.030) Urine Protein Negative (Negative) Urine Glucose (UA) Negative (Negative) Urine Ketones Negative (Negative) Urine Blood Negative (Negative) Urine Nitrite Negative (Negative) Urine Bilirubin Negative (Negative) Urine Urobilinogen Negative (Negative) Ur Leukocyte Esterase Trace H (Negative) Urine WBC (Auto) 1-5 (0-5) /hpf Urine RBC (Auto) 0-4 (0-4) /hpf U Hyaline Cast (Auto) 1-5 (0-5) /lpf U Epithel Cells (Auto) 10-20 H (0-5) /lpf Urine Bacteria (Auto) Negative (Negative) SARS-CoV-2, RNA, NAAT (NEGATIVE) 02/24/22 Range/Units 18:03 WBC (4.8-10.8) K/uL RBC (4.7-6.1) M/uL Hgb (14.0-18.0) g/dL Hct (42-52) % MCV (80-100) fL MCH (25-34) pg MCHC (32-36) g/dL RDW Std Deviation (36.4-46.3) fL RDW Coeff of Chelsie (11.5-14.5) % Plt Count (130-400) K/uL MPV (7.4-10.4) fL Immature Gran % (Auto) % Neut % (Auto) % Lymph % (Auto) % [place] % (Auto) % Eos % (Auto) % Baso % (Auto) % Neut # (Auto) (1.4-6.5) K/uL Lymph # (Auto) (1.2-3.4) K/uL [place] # (Auto) (0.11-0.59) K/uL Eos # (Auto) (0-0.5) K/uL Baso # (Auto) (0-0.2) K/uL Immature Gran # (Auto) (0.00-0.02) K/uL PT (9.0-12.0) Seconds INR (0.9-1.1) APTT (21.0-31.0) Seconds PTT Ratio Sodium (136-145) mmol/L Potassium (3.5-5.1) mmol/L Chloride (98-107) mmol/L Carbon Dioxide (21-32) mmol/L Anion Gap (3-11) BUN (6-23) mg/dl Creatinine (0.6-1.4) mg/dl Est Cr Clr Drug Dosing ml/min Est GFR ( Amer) ml/min Est GFR (Non-Af Amer) ml/min BUN/Creatinine Ratio (10-20) Glucose (70-99(Fasting)) mg/dl Calcium (8.5-10.1) mg/dl Magnesium (1.7-2.4) mg/dl Total Bilirubin (0.2-1.0) mg/dl AST (13-39) U/L ALT (7-52) U/L Alkaline Phosphatase (34-104) U/L Total Creatine Kinase (30-223) U/L Troponin I High Sens (0-20) pg/ml Total Protein (6.0-8.3) gm/dl Albumin (3.4-5.0) gm/dl Globulin (2.5-4.0) gm/dl Albumin/Globulin Ratio (0.9-2) Lipase (11-82) U/L TSH (0.300-4.500) uIu/ml Urine Color Urine Appearance (Clear) Urine pH (4.5-7.5) Ur Specific Barnum (1.000-1.030) Urine Protein (Negative) Urine Glucose (UA) (Negative) Urine Ketones (Negative) Urine Blood (Negative) Urine Nitrite (Negative) Urine Bilirubin (Negative) Urine Urobilinogen (Negative) Ur Leukocyte Esterase (Negative) Urine WBC (Auto) (0-5) /hpf Urine RBC (Auto) (0-4) /hpf U Hyaline Cast (Auto) (0-5) /lpf U Epithel Cells (Auto) (0-5) /lpf Urine Bacteria (Auto) (Negative) SARS-CoV-2, RNA, NAAT NEGATIVE (NEGATIVE) Administered Medications Discontinued Medications Aspirin (Aspirin Chew 324 Mg) 324 mg PO NOW STA Stop: 02/24/22 14:19 Last Admin: 02/24/22 14:28 Dose: 324 mg Documented by: [id number] Sodium Chloride (Nss 1000ml) 1,000 mls @ 999 mls/hr IV .Q1H1M HAYDEN Stop: 02/24/22 15:15 Last Infusion: 02/24/22 15:30 Dose: 0 mls/hr Documented by: [id number] Admin: 02/24/22 14:28 Dose: 999 mls/hr Documented by: [id number] Imaging Data Radiologist's Impression: Chest X-Ray 02/24/22 14:13 XR chest 1V portable CLINICAL HISTORY: Atypical chest pain. COMPARISON STUDY: Chest radiograph January 27, 2017. FINDINGS: Lung volumes are normal. Lungs are clear. There is no pneumothorax or pleural effusion. Cardiac size is normal. Mediastinal contours are normal. There is no evidence for pulmonary edema. Dextroscoliosis of the thoracic spine is unchanged. Emphysema is present. IMPRESSION: No acute cardiopulmonary findings. Emphysema. ACT 112: Negative or not required by law. Electronically signed by: Eleuterio Salinas M.D. 02/24/2022 3:[address] 02/24/22 14:14 CT OF THE CERVICAL SPINE WITHOUT CONTRAST CLINICAL HISTORY: Fall. COMPARISON STUDY: No previous studies for comparison. TECHNIQUE: Helical axial images of the cervical spine were obtained without IV contrast. Sagittal and coronal reconstructions were viewed. Automated exposure control was utilized for the study. A dose lowering technique was utilized adhering to the principles of ALARA. FINDINGS: There is reversal of the normal cervical lordosis. Vertebral body heights are maintained. No acute cervical spine fracture or subluxation is present. There is no prevertebral edema. Facet joints are intact. Severe multilevel facet arthrosis is present. There is moderate multilevel disc space narrowing and osteophytosis within the cervical spine. IMPRESSION: No acute cervical spine fracture or subluxation. Severe multilevel degenerative changes within the cervical spine. ACT 112: Negative or not required by law. Electronically signed by: Eleuterio Salinas M.D. 02/24/2022 4:[address] 02/24/22 14:14 CT OF THE HEAD WITHOUT CONTRAST CLINICAL HISTORY: fall COMPARISON STUDY: MRI of the brain May 30, 2017. TECHNIQUE: Helical axial images of the head were obtained without IV contrast. Automated exposure control was utilized for the study. A dose lowering technique was utilized adhering to the principles of ALARA. FINDINGS: No acute intracranial hemorrhage, midline shift or mass effect is present. The ventricular system is unremarkable. The basal cisterns are patent. No extra-axial collections are present. There are no findings to suggest acute dural sinus thrombosis or acute territorial infarct. No significant calvarial abnormalities are present. Visualized portions of the sinuses and mastoid air cells are clear. IMPRESSION: 1. No acute intracranial findings. 2. No acute fracture. ACT 112: Negative or not required by law. Electronically signed by: Eleuterio Salinas M.D. 02/24/2022 4:29 PM Discharge Plan Visit Data Chief Complaint: Syncope ED Provider: Blas Raymundo Discharge Problem: Chest pain, Syncope, Head injury Patient Disposition: Being Evaluated by Hospitalist Discharge Instructions Interventions: ED Discharge Assessment Last Done: 02/24/22 20:14 Forms Stand Alone Forms: [facility] [employer] Prescriptions Prescriptions: No Action rosuvastatin 40 mg tablet 40 mg PO QAM Qty: 90 RF: 3 pantoprazole 40 mg tablet,delayed release (DR/EC) 40 mg PO DAILY Qty: 30 RF: 5 nitroglycerin 0.4 mg tablet, sublingual 0.4 mg SL Q5M PRN (Reason: Angina) Qty: 25 RF: 5 ibuprofen 600 mg tablet 600 mg PO BID Qty: 60 RF: 11 sildenafil (pulm.hypertension) 20 mg tablet See Rx Instructions PO ONCE PRN (Reason: Sexual Activity) RF: 0 acetaminophen 500 mg tablet 500 mg PO TID PRN (Reason: fever or pain) RF: 0 aspirin 81 mg Tablet,Delayed Release (Dr/Ec) 81 mg PO QAM RF: 0 Referrals Referrals: Nadeem Holliday III, MD [Physician] -
[2022-02-24 14:34] LABS: Basophils # (auto) 0.02 K/uL (0-0.2); Basophils % (auto) 0.5 %; Eosinophils # (auto) 0.11 K/uL (0-0.5); Eosinophils % (auto) 2.6 %; Hemoglobin 13.3 g/dL (14.0-18.0); Immature Granulocytes # (auto) 0.01 K/uL (0.00-0.02); Immature Granulocytes % (auto) 0.2 %; Lymphocytes # (auto) 1.26 K/uL (1.2-3.4); Lymphocytes % (auto) 30.1 %; Mean Corpuscular Hgb Conc 34.1 g/dL (32-36); Mean Corpuscular Volume 93.8 fL (80-100); Mean Platelet Volume 10.6 fL (7.4-10.4); Monocytes # (auto) 0.42 K/uL (0.11-0.59); Neutrophils # (auto) 2.36 K/uL (1.4-6.5); Neutrophils % (auto) 56.6 %; Platelet Count 131 K/uL (130-400); RDW Coefficient of Variation 12.2 % (11.5-14.5); RDW Standard Deviation 41.3 fL (36.4-46.3); Red Blood Count 4.16 M/uL (4.7-6.1); White Blood Count 4.18 K/uL (4.8-10.8)
[2022-02-24 14:36] LABS: Partial Thromboplastin Ratio 0.8; Prothrombin Time 10.6 Seconds (9.0-12.0)
[2022-02-24 14:41] LABS: Albumin Globulin Ratio 1.8 (0.9-2); Albumin Level 4.1 gm/dl (3.4-5.0); BUN Creatinine Ratio 18.7 (10-20); Bilirubin,Total 0.6 mg/dl (0.2-1.0); Calcium 8.9 mg/dl (8.5-10.1); Creatinine Clr Calc Pharmacy 68.6 ml/min; Est GFR (Non-African American) 86.3 ml/min; Globulin 2.3 gm/dl (2.5-4.0); Magnesium 1.8 mg/dl (1.7-2.4); Potassium 4.3 mmol/L (3.5-5.1); Total Protein 6.4 gm/dl (6.0-8.3)
[2022-02-24 14:43] LABS: Troponin I High Sensitivity 8.5 pg/ml (0-20)
--- NOTE | 2022-02-24 15:48 | XRay Report ---
XR chest 1V portable CLINICAL HISTORY: Atypical chest pain. COMPARISON STUDY: Chest radiograph January 27, 2017. FINDINGS: Lung volumes are normal. Lungs are clear. There is no pneumothorax or pleural effusion. Car diac size is normal. Mediastinal contours are normal. There is no evidence for pulmonary edema. Dextr oscoliosis of the thoracic spine is unchanged. Emphysema is present. IMPRESSION: No acute cardiopulmonary findings. Emphysema. ACT 112: Negative or not required by law. Electronically signed by: Eleuterio Salinas M.D. 02/24/2022 3:47 PM
[2022-02-24 16:13] LABS: Appearance Urine Clear (Clear); Bacteria Urine Automated Negative (Negative); Bilirubin Urine Negative (Negative); Blood Urine Negative (Negative); Color Urine Yellow; Glucose Urine UA Negative (Negative); Ketones Urine Negative (Negative); Leukocyte Esterase Urine Trace (Negative); Nitrite Urine Negative (Negative); Protein Urine Negative (Negative); RBC Urine Automated 0-4 /hpf (0-4); Specific Gravity Urine 1.017 (1.000-1.030); Urobilinogen Urine Negative (Negative)
--- NOTE | 2022-02-24 16:30 | CT Scan Report ---
CT OF THE HEAD WITHOUT CONTRAST CLINICAL HISTORY: fall COMPARISON STUDY: MRI of the brain May 30, 2017. TECHNIQUE: Helical axial images of the head were obtained without IV contrast. Automated exposure con trol was utilized for the study. A dose lowering technique was utilized adhering to the principles o f ALARA. FINDINGS: No acute intracranial hemorrhage, midline shift or mass effect is present. The ventricular system is unremarkable. The basal cisterns are patent. No extra-axial collections are present. There are no findings to suggest acute dural sinus thrombosis or acute territorial infarct. No significant calvarial abnormalities are present. Visualized portions of the sinuses and mastoid air cells are lorraine ar. IMPRESSION: 1. No acute intracranial findings. 2. No acute fracture. ACT 112: Negative or not required by law. Electronically signed by: Eleuterio Salinas M.D. 02/24/2022 4:29 PM
--- NOTE | 2022-02-24 16:32 | CT Scan Report ---
CT OF THE CERVICAL SPINE WITHOUT CONTRAST CLINICAL HISTORY: Fall. COMPARISON STUDY: No previous studies for comparison. TECHNIQUE: Helical axial images of the cervical spine were obtained without IV contrast. Sagittal a nd coronal reconstructions were viewed. Automated exposure control was utilized for the study. A do se lowering technique was utilized adhering to the principles of ALARA. FINDINGS: There is reversal of the normal cervical lordosis. Vertebral body heights are maintained. N o acute cervical spine fracture or subluxation is present. There is no prevertebral edema. Facet join ts are intact. Severe multilevel facet arthrosis is present. There is moderate multilevel disc space narrowing and osteophytosis within the cervical spine. IMPRESSION: No acute cervical spine fracture or subluxation. Severe multilevel degenerative changes w ithin the cervical spine. ACT 112: Negative or not required by law. Electronically signed by: Eleuterio Salinas M.D. 02/24/2022 4:31 PM
--- NOTE | 2022-02-24 19:08 | History & Physical Report ---
Date of Service February 24, 2022 Assessment & Plan (1) Syncope: Plan: Two episodes with clear prodrome symptoms after taking nitroglycerin for chest pain. Has not taken sildenafil in months, but was at least mildly dehydrated as he had been working outside for several hours without stopping to drink any fluids. - Very likely vasovagal in nature with nitro exacerbating - Telemetry overnight though arrhythmia seems unlikely. - Trend one additional troponin - Echo in AM (2) Chest pain: Plan: Likely MSK in nature as his symptoms were not super convincing for ACS. Two negative troponins. EKG does show some TWIs in V4-V6 that appear new from 2017. - Lower concern for ACS - Trend one additional troponins - Echo as above -> If stable, could likely discharge with o/p follow-up (3) CAD in [place] artery: Plan: Acute Inferior [place] 12/15/1998 s/p Mid RCA Stent ([facility]). - Continue ASA, statin - Med rec without beta-toby, but prior notes indicate he was on metoprolol. Will clarify with patient why it was stopped. Possibly due to lower HR as his HR in the ER was 60-68 at rest? (4) Cardiomyopathy, ischemic: Plan: Per cardiology note, Ischemic Cardiomyopathy (LVEF 45%) with inferior basal hypokinesis. No echo in our system. Appears euvolemic today. - Echo as above (5) Diabetes mellitus type 2, uncontrolled: Plan: Last A1c was 6.5% in 10/2021. Not on home meds. - Monitor glucose with AM labs (6) Hypertension: Plan: Not on any BP meds at this time. BP in the ER was 135/80. - Monitor (7) GERD (gastroesophageal reflux disease): Plan: - Continue PPI (8) Pulmonary embolism: Plan: Hx of after surgery. - Early ambulation and discharge for VTE ppx History of Present Illness Primary Care Provider: MINDA Baer-C 66yo M w/ hx of CAD who presents with chest pain and syncope. The patient was out weeding much of the morning and did not drink any water. He came in for lunch and noted some chest pain in the left chest. He rates it as an moderate, "achy" pain that did not radiate. He felt tired, but otherwise had no associated symptoms. No palpitations, no nausea or vomiting, no shortness of breath, no diaphoresis. After 7-10 minutes, he felt like the pain was not improving, so he took a nitroglycerin. He sat down on the couch after this to rest. His called him for lunch, and he stood up and walked to the kitchen. While walking, he became dizzy and lightheaded. He was able to make it to the kitchen table, and his asked him if he was ok because he was very pale. He passed out and slid between the table and the chair. He quickly came to, and his helped him stand up, when he promptly passed out again and struck his head. His reports no seizure activity or tonic-clonic activity during this time. During my interview, he denies any further chest pain. Allergies Allergy/AdvReac Type Severity Reaction Status Date / Time No Known Allergies Allergy Verified 02/24/22 18:07 Home Medications Medication Instructions Recorded Confirmed Type aspirin 81 mg tablet,delayed 81 mg PO QAM 07/28/19 02/24/22 History release sildenafil (pulm.hypertension) 20 See Rx Instructions PO ONCE PRN 07/26/20 02/24/22 History mg tablet acetaminophen 500 mg tablet 500 mg PO TID PRN 05/04/21 02/24/22 History ibuprofen 600 mg tablet 600 mg PO BID #60 tab 05/21/21 02/24/22 Rx rosuvastatin 40 mg tablet 40 mg PO QAM #90 tab 06/22/21 02/24/22 Rx pantoprazole 40 mg tablet,delayed 40 mg PO DAILY #30 tab 12/24/21 02/24/22 Rx release nitroglycerin 0.4 mg sublingual 0.4 mg SL Q5M PRN #25 tab 02/06/22 02/24/22 Rx tablet Past Med/Surg History Medical History Borderline diabetes BPH (benign prostatic hyperplasia) GERD (gastroesophageal reflux disease) Hearing loss in right ear Hypertension Migraine Myocardial Infarction 11/1998--follows with [facility] Preoperative cardiovascular examination Pulmonary embolism 2012 couple days after cholecysectomy--no blood thinners Spinal stenosis Surgical History History of bilateral inguinal hernia repair (~1960) History of cardiac cath 11/1998 @ [facility] [place] with 1 stent History of cholecystectomy History of colonoscopy History of esophagogastroduodenoscopy (EGD) History of heart artery stent 11/1998 History of lumbar spinal fusion History of repair of left rotator cuff History of right inguinal hernia repair History of tonsillectomy and adenoidectomy History of tooth extraction all upper teeth Family History Brother Family history of diabetes mellitus Hypertension Father Hypertension Heart disease Hypercholesterolemia Mother Heart disease Hypertension Hypercholesterolemia Other No family history of adverse response to anesthesia Denies family history of Prostate cancer Diabetes Colorectal cancer Social History Smoking Status: Former smoker Tobacco Type: Cigarettes Age Started Using Tobacco: 9; Age Quit Using Tobacco: 52; packs per day: 3.5; Years Smoked: 43; Number of Years Since Quit: 12; Second Hand Exposure: Yes (parents smoked); Hx Alcohol Use: No Hx Substance Use: No Preferred Language: Kazakh Communication Ability: Effective Java Developer Architect Required: No Beliefs That Will Affect Care: None Current Living Situation: Spouse and Family Current Living Situation Comment: Lives with and daughter Feels Safe at Home: Yes caffeine: Yes Physical Activity Frequency: 3-4 Times per Week Physical Activity Frequency Comment: [employer] (eliptical, free weights, treadmill) Seatbelt Use: always Sunscreen Use: Yes Assistive Devices: Denture - Upper and Glasses Review of Systems Review of Systems: All systems reviewed & are unremarkable except as noted in HPI & below Physical Exam Constitutional: WD/WN, vitals as above Eyes: EOM intact bilaterally; no conjunctival abnormality ENMT: external ear and nose normal, oropharynx normal Neck: trachea midline, no thyromegaly normal visual inspection Respiratory: normal respiratory effort, lungs clear to auscultation no respiratory distress Cardiovascular: Rate/Rhythm: regular rhythm and + bradycardic (Borderline - 60 to 70 bpm) Gastrointestinal (Abdomen): Inspection/Auscultation: abdomen normal to inspection; abdomen not distended Musculoskeletal: no cyanosis or clubbing, extremities motor strength 5/5 Skin: no rashes, warm and dry Neurologic: moves all extremities and awake Psychiatric: Orientation: alert, oriented to person and cooperative Results & Data Results & Data ([facility]) Vital Signs (Past 12 Hours) Vital Signs Temp Pulse Pulse Resp BP BP Pulse Ox 02/24/22 18:06 61 16 136/78 98 02/24/22 16:58 60 16 123/58 L 98 02/24/22 15:29 56 L 16 123/58 L 97 02/24/22 14:24 60 16 123/58 L 98 02/24/22 13:29 36.4 C L 61 16 123/58 L 98 PG Care Time/CCT Total # of Minutes Spent Total Time Spent with Patient: Total time spent is greater than 50% in coordination of care (as documented) at patient's floor/unit and/or counseling patient: Coding Level of Care Code INT OBSERVATION CARE 70M LVL 3 Diagnoses Syncope R55 Chest pain R07.9 CAD in [place] artery I25.10 Cardiomyopathy, ischemic I25.5 Diabetes mellitus type 2, uncontrolled E11.65 Hypertension I10 GERD (gastroesophageal reflux disease) K21.9 Pulmonary embolism I26.99
[2022-02-24] MEDS ORDERED: ONDANSETRON INJ 2 MG/ML 2 ML VIAL IV PRN (20:34)
[2022-02-24] MEDS ORDERED: ACETAMINOPHEN 500 MG TAB PO PRN (20:34)
[2022-02-24] MEDS: IBUPROFEN 600 MG TAB PO SCH (21:41)
[2022-02-25 06:14] LABS: Hematocrit (blood only) 38.4 % (42-52); Hemoglobin 13.3 g/dL (14.0-18.0); Mean Corpuscular Hemoglobin 32.4 pg (25-34); Mean Corpuscular Hgb Conc 34.6 g/dL (32-36); Mean Corpuscular Volume 93.4 fL (80-100); Mean Platelet Volume 10.6 fL (7.4-10.4); Platelet Count 110 K/uL (130-400); RDW Coefficient of Variation 12.3 % (11.5-14.5); RDW Standard Deviation 42.1 fL (36.4-46.3); Red Blood Count 4.11 M/uL (4.7-6.1); White Blood Count 3.86 K/uL (4.8-10.8)
[2022-02-25 07:00] LABS: Calcium 8.3 mg/dl (8.5-10.1); Magnesium 1.9 mg/dl (1.7-2.4)
[2022-02-25] MEDS: IBUPROFEN 600 MG TAB PO SCH (08:11)
[2022-02-25 08:12] LABS: BUN Creatinine Ratio 16.7 (10-20); Creatinine Clr Calc Pharmacy 72.1 ml/min; Est GFR (African American) 104.3 ml/min
[2022-02-25] MEDS ORDERED: ASPIRIN 81 MG ECTAB PO SCH (09:00)
[2022-02-25] MEDS ORDERED: ROSUVASTATIN CALCIUM 20 MG TAB PO SCH (09:00)
[2022-02-25] MEDS ORDERED: PANTOprazole 40 MG TAB PO SCH (09:00)
--- NOTE | 2022-02-25 18:32 | XCELERA ---
[id number]
--- NOTE | 2022-02-26 10:04 | Electrocardiogram Report ---
Test Reason : Blood Pressure : / mmHG Vent. Rate : 055 BPM Atrial Rate : 055 BPM P-R Int : 122 ms QRS Dur : 090 ms QT Int : 426 ms P-R-T Axes : 064 055 199 degrees QTc Int : 407 ms Poor data quality, interpretation may be adversely affected Sinus bradycardia Cannot rule out Inferior infarct , age undetermined Abnormal ECG When compared with ECG of 27-JAN-2017 09:34, Nonspecific T wave abnormality now evident in Inferior leads T wave inversion now evident in Lateral leads Confirmed by Brad Solano ([id number]) on 02/26/2022 10:03:48 AM Referred By: REFERRED SELF Confirmed By:Brad Solano
== END 2022-02-25 14:48 | disposition home or self-care (01) ==
LOC: 2N 13:25 → ED 13:25 → SUATTDRO 18:59 → 2N 20:14

== ENCOUNTER 2024-01-16 05:09 | Observation (INO) ==
--- NOTE | 2023-12-11 15:20 | PAT Medication Instructions ---
Medication Instructions Date of Service December 11, 2023 Home Medications Medication Instructions Recorded nitroglycerin 0.4 mg sublingual 0.4 mg sublingual Q5M PRN Angina 02/06/22 tablet #25 tabs ibuprofen 600 mg tablet 600 mg PO BID PRN pain #60 tabs 06/30/23 rosuvastatin 40 mg tablet 40 mg PO QAM #90 tabs 11/04/23 Medication List: aspirin 81 mg tablet,delayed release 81 mg PO QAM nitroglycerin 0.4 mg sublingual tablet 0.4 mg sublingual Q5M PRN Angina pantoprazole 40 mg tablet,delayed release 40 mg PO QAM ibuprofen 600 mg tablet 600 mg PO BID PRN pain rosuvastatin 40 mg tablet 40 mg PO QAM multivitamin 1 tab PO DAILY MEDICATION INSTRUCTIONS: Continue as directed nitroglycerin 0.4 mg sublingual tablet 0.4 mg sublingual Q5M PRN Angina ASK your surgeon for instructions ibuprofen 600 mg tablet 600 mg PO BID PRN pain ASK your prescriber and surgeon aspirin 81 mg tablet,delayed release 81 mg PO QAM DO NOT take the morning of surgery multivitamin 1 tab PO DAILY Take morning of surgery With a small sip of water, OTHERWISE NOTHING TO EAT OR DRINK AFTER MIDNIGHT: pantoprazole 40 mg tablet,delayed release 40 mg PO QAM rosuvastatin 40 mg tablet 40 mg PO QAM Other Notes If you have any questions please call us at [phone] or [phone] or [phone] or [phone]
--- NOTE | 2023-12-23 10:52 | Anesthesiology Consultation ---
Date of Service December 23, 2023 Assessment & Plan (1) Encounter for pre-operative examination: Chart Review Chart Review: Acceptable Risk for Surgery and Patient seen in Pre Admission Testing - Check BSG AM DOS - Patient is NOT an ideal OPJ candidate (currently 23 hour obs) Per PAT appt on 12/23/23, no recent illness/disease exposures, illness related symptoms, or recent illness/disease positive tests. Will leave to surgeon's dis cretion if preop Covid testing needed Patient seen by PCP 12/02/23= patient presents for chronic care follow-up. Diabetescontrolledcurrently no prescription treatment. Last hemoglobin A1c 7.4elevated from priorwill recheck labs at next visit. Not interested in medication today. CADprevious stents in RCA and left circumflex as well as ischemic cardiomyopathy. Patient physically active and no cardiopulmonary symptoms. Had recent echocardiogram which was reviewed. Follows with cardiology. GERDon pantoprazole. Hyperlipidemiaon statin. Lumbar stenosisnontraumatic pain in lower back and right hipnotes upcoming right hip replacement. Osteoarthritis of right hipnoted that he has upcoming surgery, currently considered low risk for procedure. Patient last seen by cardio 09/29/23= seen for follow up. CAD- inferior UT 1998- stents to RCA. PCI ostial LCx, proximal distal RCA 03/2022. Ischemic CM- EF 40-45%. Type II DM. HTN- off therapy. HLD- LDL 161. Prior manager terminal smoker. Stable from cardiac standpoint. Not exercising as was previously but with working, current activity- no anginal symptoms. Continue current meds. Repeat ECHO to reassess LV function. Continue statin. Encouraged more routine exercise. Follow up in 9 months Teaching & Discussion Pre-Anesthesia Teaching/Discussion Notes: Instructed NPO after midnight before surgery,except medications with 15 cc of water. Medication instructions provided according to the PAT guidelines. History Surgery Operation Date: 01/16/24 09:00 Proposed Procedures p Right Anterior Total Hip Arthroplasty - Almas Bull DO Height/Weight Height: 5 ft 7 in Weight: 62 kg Allergies Allergy/AdvReac Type Severity Reaction Status Date / Time No Known Allergies Allergy Verified 12/10/23 11:42 Medications Home Medications Medication Instructions Recorded Confirmed Last Taken aspirin 81 mg tablet,delayed 81 mg PO QAM 07/28/19 12/10/23 01/06/23 release nitroglycerin 0.4 mg sublingual 0.4 mg sublingual Q5M PRN Angina 02/06/22 12/10/23 Unknown tablet #25 tabs pantoprazole 40 mg tablet,delayed 40 mg PO QAM 12/30/22 12/10/23 01/07/23 release ibuprofen 600 mg tablet 600 mg PO BID PRN pain #60 tabs 06/30/23 12/10/23 Unknown rosuvastatin 40 mg tablet 40 mg PO QAM #90 tabs 11/04/23 12/10/23 Unknown multivitamin 1 tab PO DAILY 12/10/23 12/10/23 Unknown Past Medical History Medical History (Updated 12/24/23 @ 11:41 by Jaycee Ortiz PA-C) BPH (benign prostatic hyperplasia) CAD (coronary artery disease) Inferior UT 11/1998 with stent to RCA Staged- PCI ostial LCx WALTER x 1 on 04/04/22, proximal distal RCA WALTER x 2 in 04/08/2022 Cardiomyopathy, ischemic EF 40-45%- improved to 50-55% per 10/2023 ECHO Diabetes type 2, controlled Diet controlled GERD (gastroesophageal reflux disease) well controlled and stable Hearing loss in right ear Hiatal hernia History of anesthesia reaction "following back surgery in 2013, I had the hiccups for 15 days" History of COVID-19 08/18/22, home test, not hosp; mild symptoms>resolved. Hypertension pt. denies-"usually runs on the low side, not the high side" HTN per records - "off medications" Migraine hx Myocardial Infarction 1998 Nephrolithiasis hx-no sx. Pulmonary embolism 2012>couple days after cholecystectomy (no issues with subsequent surgeries) Spinal stenosis Exercise / Class Metabolic Activity II 4-5 Yardwork/Stairs/Walk up hill (one flight of stairs - no chest pain or SOB ) Past Family History Family History Brother Family history of diabetes mellitus Hypertension Father Hypertension Heart disease Hypercholesterolemia Mother Heart disease Hypertension Hypercholesterolemia Other No family history of adverse response to anesthesia Denies family history of Prostate cancer Diabetes Colorectal cancer Past Surgical History Surgical History (Updated 12/23/23 @ 10:57 by Jaycee Ortiz PA-C) History of bilateral inguinal hernia repair (~1961) History of cardiac cath 11/1998 @ [facility] [place] with 1 stent 03/2022, [facility], x3 stent; f/u dr. martin, [place] History of cholecystectomy History of colonoscopy History of esophagogastroduodenoscopy (EGD) History of heart artery stent 11/1998 @ [facility] [place] with 1 stent 03/2022, [facility], x3 stent; f/u [place] History of lumbar spinal fusion History of repair of left rotator cuff History of right inguinal hernia repair 1985 History of tonsillectomy and adenoidectomy History of tooth extraction all upper teeth Past Anesthesia History No Hx of Anesthesia Complications (with exception to remote hx of hiccups x 15 days post op in 2014 (no issues with subsequent surgeries)) and No Family Hx of Anesthesia Complications (with exception sister- allergy to iodine (anaphylaxis)- patient denies any personal known allergy ) History of PONV No Hx of PONV and No Hx of Motion Sickness Social History Smoking Status: Former smoker tobacco type: cigarettes Do You Dip or Chew Tobacco: No Smoking End Date: 15 years ago Hx Alcohol Use: Yes alcohol intake frequency: other Alcohol Intake Frequency Comment: rare Hx Substance Use: Yes substance use type: former substance user, marijuana and crack/cocaine Last Used Substance Other:: remote hx-occasional Review of Systems - Hx of mild snoring - no witnessed apnea - no hx of sleep study Patient denies chest pain, shortness of breath, dyspnea on exertion, cough, wheezing, palpitations. No hx of seizures, stroke. No hx of blood transfusions Physical Exam Vital Signs VITALS BP 119/73 P 61 TEMP 97.5 SP02 96% RESP 16 Constitutional no acute distress ENMT Mouth: no TMJ clicking Thyromental Distance: > or= 3.5 Finger Breadths (4.0) Mallampati Class: II Full dentures on top and bottom Neck + limited neck extension (significant ) Respiratory normal respiratory effort; no respiratory distress Auscultation: lungs clear to auscultation bilaterally; no wheezes Cardiovascular Rate/Rhythm: regular rate and regular rhythm Heart Sounds: no murmur Vessels: no carotid bruit Musculoskeletal Spine: + pain with cervical ROM Extremities: extremities normal to inspection Psychiatric Orientation: alert Lab Results Anesthesia Preop Results Results Anesthesia Widget: WBC 4.57 K/ul (4.8-10.8) L 12/23/23 Hgb 14.6 g/dl (14.0-18.0) 12/23/23 Hct 41.9 % (42.0-52.0) L 12/23/23 Plt 128 K/uL (130-400) L 12/23/23 Na 139 mmol/L (136-145) 12/23/23 K 4.2 mmol/L (3.5-5.1) 12/23/23 Cl 105 mmol/L (98-107) 12/23/23 CO2 31 mmol/L (21-32) 12/23/23 BUN 15 mg/dl (6-23) 12/23/23 Creat 0.90 mg/dl (0.6-1.4) 12/23/23 Glucose Level 141 mg/dl (70-99(Fasting)) H 12/23/23 PT 10.7 Seconds (9.0-12.0) 12/23/23 PTT 27 Seconds (21-31) 12/23/23 INR 1.0 (0.9-1.1) 12/23/23 Blood Type O Positive 12/23/23 Antibody Screen NEGATIVE 12/23/23 Testing Laboratory Results 11/28/23= HGB A1C: 7.4 Electrocardiogram Date: 12/23/23 Findings: + SB @ (56bpm) and + no change from (April 08, 2022 per cardio ) Nonspecific ST and T wave abnormality Chest X-Ray Date: 12/23/23 Findings: + NAD FINDINGS: The lungs are clear. Cardiac silhouette is normal in size. No pleural effusions. No pneumothorax. Prior cholecystectomy. Mild scoliosis. A right coronary artery stent is noted Echocardiogram Date: 10/24/23 EF: 50-55% LV Function: normal Other Findings: no LVH Valvular Disease: + no significant valvular disease Thinned, akinetic basal inferior/inferoseptal segments Normal RV size and function Normal estimated RA pressure Compared with prior study on 02/25/2022- LV function is mildly improved. Anterolateral/inferolateral HK improved Stress Test Date: 03/21/22 Type: exercise (Echo) Resting EF: 40-45% Resting LV Function: dysfunctional Abnormal stress ECHO suggesting multivessel CAD. LV systolic function declined following exercise. MPHR 93% Indeterminate exercise EKG due to baseline abnormalities. Baseline abnormalities became more pronounced with exercise Appropriate BP response to exercise. No arrhythmia Study terminated due to fatigue. No chest pain reported. Breakthrough pain reported in recovery Mild to moderate reduced LV systolic function at rest with multiple wall motion abnormalities (Patient had subsequent cardiac cath with three WALTER placements- see below) Cardiac Catheterization Date: 04/04/22 Coronary angiography: 1. Left main: Distal left main tapers to approximately 40%. 2. Left anterior descending: Ostial/proximal LAD 20%. Mid LAD diffuse 30%. D1 with distal 30% stenosis in a small caliber vessel. TOMI 3 flow throughout the LAD system. 3. Circumflex: Proximal circumflex 90%. Mid circumflex 30-40%. OM1 with proximal 20-30% and mid 50-70%. TOMI 3 flow. 4. Right coronary artery: RCA is dominant. Two non overlapping stents within the RCA extending proximal to mid and then mid RCA. There is diffuse InStent restenosis. Proximal stent 90-95% stenosis within proximal margin of the stent and then diffuse severe InStent restenoses throughout. In the mid RCA stent there is diffuse moderate to severe stenosis of 50-70%. TOMI [address] without significant CAD. Impression: 1. Severe CAD involving circumflex and previous RCA stents. 2. Moderate CAD involving the left main. 3. Otherwise mild or moderate nonobstructive CAD. 4. No aortic stenosis. 5. Normal left-sided filling pressure. Summary: 1. Mild nonobstructive distal left main disease by IVUS 2. Successful PCI of ostial/proximal circumflex with single drug-eluting stent (2.5 x 15 mm Xience). Cardiac catheterization 04/08/22= Summary: 1. Successful PCI of proximal to distal RCA in-stent restenosis with 2 overlapping drug-eluting stents (3.0 x 38, 2.75 x 26 mm Pranav; postdilated with 3.5/4.0 NC) overlapping entirety of prior stents.
[2024-01-16] MEDS: LR 500ML BOLUS, THEN 15ML/HR IV SCH (05:45)
[2024-01-16] MEDS: LR 60ML/HR IV SCH (05:57)
[2024-01-16] MEDS: ACETAMINOPHEN 500 MG TAB PO SCH ×2 (05:58→13:40)
[2024-01-16] MEDS: FAMOTIDINE 20 MG TAB PO SCH (05:58)
[2024-01-16] MEDS: GABAPENTIN 300 MG CAP PO SCH (05:58)
[2024-01-16] MEDS: dexAMETHasone**PF** 10 MG/ML VIAL IV SCH (05:58)
[2024-01-16] MEDS ORDERED: ROPIVACAINE 0.5% 5 MG/ML 30 ML VIAL ONE (06:11)
[2024-01-16] MEDS ORDERED: LIDOCAINE 2% 2 ML VIAL/AMP(20MG/ML) INFIL ONE (06:21)
[2024-01-16] MEDS ORDERED: PROPOFOL IV EMULSION 10 MG/ML 20 ML VIAL IV ONE (06:21)
[2024-01-16] MEDS ORDERED: fentaNYL citrate PF 100 MCG/2 ML VIAL ONE (06:21)
[2024-01-16] MEDS ORDERED: DEXAMETHASONE SOD INJ 4 MG/ML VIAL ONE (06:21)
[2024-01-16] MEDS ORDERED: ONDANSETRON INJ 2 MG/ML 2 ML VIAL ONE (06:21)
[2024-01-16] MEDS ORDERED: MIDAZOLAM HCL 1 MG/ML 2ML VIAL ONE (06:22)
--- NOTE | 2024-01-16 06:29 | History & Physical Bridge Note ---
Date of Service January 16, 2024 History & Physical Bridge Note I have examined the patient, reviewed the History & Physical and in the interval since the performance of the History & Physical I have noted the following changes of clinical significance: no changes noted
[2024-01-16] MEDS ORDERED: ePHEDrine sulfate 50 MG/ML AMP IV PRN (06:35)
[2024-01-16] MEDS ORDERED: ONDANSETRON INJ 2 MG/ML 2 ML VIAL IV PRN ×2 (06:35→09:57)
[2024-01-16] MEDS ORDERED: HYDROmorphone INJ 1 MG/ML SYRINGE IV PRN (06:35)
[2024-01-16] MEDS ORDERED: ATROPINE SULFATE 0.1 MG/ML 10ML SYR IV PRN (06:35)
[2024-01-16] MEDS: TRANEXAMIC ACID 1,000 MG **IV Pre-op IV SCH (06:40)
[2024-01-16] MEDS: ceFAZolin 2000MG 2,000 MG/15 ML SYR IV SCH ×2 (06:58→13:40)
[2024-01-16] MEDS: LIDOCAINE 1% LOCAL 20 ML VIAL ONE (07:22)
[2024-01-16] MEDS ORDERED: PHENYLEPHRINE 100MCG/ML 10ML SYR IV ONE (07:27)
[2024-01-16] MEDS: ORTHO JOINT ANESTHETIC ONE (07:50)
[2024-01-16] MEDS: TRANEXAMIC ACID 1,000 MG **IV Intra-op IV SCH (07:57)
[2024-01-16] MEDS: ROPIV 0.5% 246mg, Ketorolac 30mg, EPINEPHrine 0.5mg in NSS INFIL SCH (07:59)
[2024-01-16] MEDS ORDERED: GLYCOPYRROLATE 0.2 MG/ML VIAL ONE (08:00)
[2024-01-16] MEDS ORDERED: ePHEDrine sulfate 50 MG/ML AMP ONE (08:00)
--- NOTE | 2024-01-16 08:00 | Operative Report ---
PG Post Operative Report Pre & Post Diagnosis Operation Date: 01/16/24 07:00 Pre-Op Diagnosis: Right Hip Degenerative Joint Disease Post-Op Diagnosis: Right Hip Degenerative Joint Disease I identified the patient and participated in the time-out.: Yes Procedure Operation Date: 01/16/24 07:00 Actual Procedures p Right Anterior Total Hip Arthroplasty(Right) - Almas Bull DO Surgeon Almas Bull DO Shipping Assistant Almas Diaz PA-C Estimated Blood Loss 200 Findings Consistent with Post-Op Diagnosis Specimens Right femoral head Description of Procedure Implants used I used a ZimmerBiomet total hip arthroplasty system with a size 4 high offset Avenir Complete stem, a 52 mm G7 cup with a 25mm screw, an E1 polyethylene liner, a 36 mm ceramic head with a -3.5 neck. Jaime arrived at the hospital for the above procedure. He was seen in the preoperative holding area and the operative extremity was identified and signed. He was given a spinal anesthetic, a preoperative antibiotic, and TXA. He was then taken back to the operating room and laid on the table in the supine position. He was given basic sedation. The operative leg was secured to a Puristst leg positioner. The hip was then prepped and draped in sterile fashion. A timeout was done and the patient and the operative extremity was properly identified. An anterior approach was used. Dissection was taken down through the fascia and the tensor muscle belly was retracted laterally and the rectus was retracted medially. The circumflex vessels were identified and ligated. The capsule was then incised and tagged for later repair. The femoral neck was then cut and the femoral head was removed. The acetabulum was exposed. Time was spent doing a complete circumferential labral release. Sequential reaming of the acetabulum up to a size 51 reamer was done. Final reamings were done under fluoroscopy to ensure appropriate version. A Biomet 52 mm G7 cup was then impacted into place. A single 25 mm screw was placed. The E1 polyethylene liner was then snapped into place. Surrounding soft tissues were then injected with 100 cc of an or thopedic pain control cocktail. The proximal femur was then exposed. Sequential broaching up to a size 4 broach was done. Off that broach a size 36 head with a -3.5 neck was trialed. The hip was reduced and fluoroscopic images showed anatomic alignment of the implants in acceptable length. The broach was removed. The final size 4 high offset Avenir Complete stem was then impacted into place. A ceramic 36 mm head with a -3.5 neck was then impacted onto the stem and the hip was reduced. Final fluoroscopic images showed anatomic alignment of the hip. The capsule was then closed with #1 Vicryl suture. A dilute betadyne lavage was then done for 3 minutes. The joint was then irrigated with normal saline solution. The fascia was closed with #1 PDS suture. Skin was closed with 2-0 Vicryl, piper, and a Silverlon dressing. He was then transferred to a hospital bed and taken to the post anesthesia care unit in stable condition. He tolerated the procedure well. Almas Diaz PA-C, was present for the entire procedure. He was critical for patient positioning, prepping, draping, retraction exposure, wound closure and application of sterile dressing. I attest to the content of the Intraoperative Record and any orders documented therein. Any exceptions are noted below.
--- NOTE | 2024-01-16 09:04 | Fluoroscopy Report ---
INTRAOPERATIVE RADIOGRAPH CLINICAL HISTORY: Right hip arthroplasty. Fluoro time: 16 seconds Ka,r: 1.45 mGy FINDINGS: A single spot fluoroscopic view of the right hip is presented. A bipolar right hip arthropl asty is in near anatomic alignment. A single cortical lag screw transfixes the acetabular cup. There is no evidence of acute fracture on this fluoroscopic view. IMPRESSION: Intraoperative image from a right hip arthroplasty procedure as above. Electronically signed by: Ramon Conti M.D. 01/16/2024 9:03 AM
--- NOTE | 2024-01-16 09:05 | Anesthesiology Progress Note ---
Date of Service January 16, 2024 Anesthesia Post Procedure Vital Signs Vital Signs: Temp Pulse Resp BP Pulse Ox O2 Del Method O2 Flow Rate 01/16/24 08:55 36.1 C L 92 H 14 139/77 95 Room Air 01/16/24 08:50 94 H 15 134/77 97 Room Air 01/16/24 08:40 92 H 15 140/75 100 Oxymask 5 01/16/24 08:30 98 H 15 128/70 100 Oxymask 5 01/16/24 08:21 36.0 C L 100 H 17 121/60 100 Oxymask 5 01/16/24 05:30 36.5 C 71 20 145/68 H 97 Room Air Pain Intensity Right Hip: Pain Intensity: 0 Transfer of Care Handoff Completed per policy Notes Mental Status: alert / awake / arousable and participated in evaluation Patient Amnestic to Procedure: Yes Nausea / Vomiting: adequately controlled Pain: adequately controlled Airway Patency, RR, SpO2: stable & adequate BP & HR: stable & adequate Hydration State: stable & adequate Neuraxial Anesthesia: was administered and sensory block is resolving Anesthetic Complications: no major complications apparent and Pt Satisfied with anesthetic care
--- NOTE | 2024-01-16 09:10 | XRay Report ---
XR hip 1V RT w pelvis HISTORY: 68 years-old Male IN PACU - Post Surgical right hip arthroplasty COMPARISON: 12/23/2023 TECHNIQUE: AP view of the pelvis with crosstable lateral view of the right hip FINDINGS: Moderate left hip osteoarthritis. Right hip arthroplasty with lateral skin piper, expected postoper ative soft tissue swelling and deep tissue air. No acute fracture or unexpected opaque foreign body. Lumbosacral spinal fusion hardware. IMPRESSION: Right hip arthroplasty with expected postoperative changes. ACT 112: Negative or not required by law. The above report was generated using voice recognition software. It may contain grammatical, syntax o r spelling errors. Electronically signed by: Ruiz Mendez M.D. 01/16/2024 9:09 AM
[2024-01-16] MEDS: fentaNYL citrate PF 100 MCG/2 ML VIAL IV PRN (09:22)
[2024-01-16] MEDS ORDERED: HYDROmorphone INJ 0.5 MG/0.5 ML SYR IV PRN (09:57)
[2024-01-16] MEDS ORDERED: MULTIVITAMIN TAB PO SCH (09:57)
[2024-01-16] MEDS ORDERED: MAGNESIUM HYDROXIDE SUSP 30 ML UDC PO PRN (09:57)
[2024-01-16] MEDS ORDERED: METOCLOPRAMIDE HCL INJ 5 MG/ML 2 ML VIAL IV PRN (09:57)
[2024-01-16] MEDS ORDERED: bisacodyL 10 MG SUPP PR PRN (09:57)
[2024-01-16] MEDS ORDERED: NALOXONE HCL 0.4 MG/1 ML VIAL/CARP IV PRN (09:57)
[2024-01-16] MEDS ORDERED: NITROGLYCERIN SL 0.4 MG/TAB TAB SL PRN (09:57)
[2024-01-16] MEDS: SODIUM CHLORIDE 0.9% 1,000 ML IV SCH (10:38)
[2024-01-16] MEDS: ROSUVASTATIN CALCIUM 20 MG TAB PO SCH (11:06)
[2024-01-16] MEDS: PANTOprazole 40 MG TAB PO SCH (11:06)
[2024-01-16] MEDS: ASPIRIN 81 MG ECTAB PO SCH (11:06)
[2024-01-16] MEDS: DOCUSATE SODIUM 100 MG CAP PO SCH (11:06)
[2024-01-16] MEDS: KETOROLAC TROMETHAMINE 15 MG/ML VIAL IV SCH (11:08)
[2024-01-16] MEDS: oxyCODONE HCL IR 5 MG TAB (IMMEDIATE RELEASE) PO PRN (20:50)
[2024-01-16] MEDS: SENNA 8.6 MG TAB PO SCH (20:51)
--- NOTE | 2024-01-17 07:44 | Orthopedic Progress Note ---
Date of Service January 17, 2024 Assessment & Plan (1) Status post right hip replacement: Overall he is doing fairly well. He is not having much pain in the right hip. He will be seen by physical therapy today for ambulation and range of motion exercises. He is on aspirin for DVT prophylaxis. He can be discharged home later today. He will follow-up with orthopedics in 2 weeks. José Miguel Sandoval was seen and examined at bedside this morning. Overall is doing fairly well. He is not having much pain in the right hip. He has been up and ambulating to the bathroom. He has no complaints.. Review of Systems All systems reviewed & are unremarkable except as noted in HPI & below. Physical Exam On physical examination of the right hip, the dressing is clean and dry. His leg is out full extension. He has active dorsiflexion plantarflexion of his right ankle.. Results & Data Results & Data Laboratory Results . Diagnostic Findings Postoperative x-rays of the right hip show the prosthesis to be in anatomic alignment without any evidence of fracture, his cage, or loosening.. PG Care Time/CCT Total # of Minutes Spent Total Time Spent with Patient: Total time spent is greater than 50% in coordination of care (as documented) at patient's floor/unit and/or counseling patient: Coding Level of Care Code 05235 Post Operative Follow-Up Diagnoses Status post right hip replacement Z96.641
[2024-01-17] MEDS: dexAMETHasone 4 MG TAB PO SCH (07:45)
[2024-01-17] MEDS: MULTIVITAMIN TAB PO SCH (07:45)
--- NOTE | 2024-01-17 07:45 | Discharge Summary ---
Date of Service January 17, 2024 Principal Diagnosis Same as "Discharge Diagnosis" noted below under Discharge Instructions. Discharge Exam On physical examination of the right hip, the dressing is clean and dry. His leg is out full extension. He has active dorsiflexion plantarflexion of his right ankle.. Discharge Data Procedures Performed Operation Date: 01/16/24 07:00 Actual Procedures p Right Anterior Total Hip Arthroplasty(Right) - Almas Bull DO Ordered Studies 01/16/24 07:00 FL hip RT 1V Routine Hospital Course (1) Status post right hip replacement: On January 16, 2024 Jaime arrived at [facility] and underwent a right hip replacement without complication. He had a spinal anesthetic. Postoperatively he was started on aspirin for DVT prophylaxis and transferred to the general orthopedic floors. His hospital course was uneventful. On postop day #1, his vital signs were stable and his pain was well-controlled. He was able to participate well with physical therapy doing ambulation and range of motion exercises. He was then discharged home. He will follow-up with orthopedics in 2 weeks. PG Care Time/CCT Total # of Minutes Spent Total Time Spent with Patient: Total time spent is greater than 50% in coordination of care (as documented) at patient's floor/unit and/or counseling patient: Discharge Plan Discharge Items Patient Disposition: Home - Self-Care Reason For Visit: Right Hip Degenerative Joint Disease Discharge Diagnosis: Right hip replacement Activity: As commented below Non-emergency contact: Surgeon Call non-emergency contact if: your wound has increased redness and your wound has increased drainage Follow-up/Referrals: Fernando Perdomo DO [Primary Care Provider] - Diet: Regular Addtl Attending Provider Instructions: Activity and Therapy Recommendations: * If you are using [facility] then therapy will be provided at your home until they feel you have accomplished all of your goals. * If you are using [facility] then Physical Therapy will be provided until they feel you are ready to start Outpatient Physical Therapy. * If you are not using home therapy then Outpatient Physical Therapy should start about 3-5 days from your day of surgery. Therapy will last about 6-10 weeks * You were shown a series of exercises in the hospital. Do these exercises three times each day including the exercises you were shown in physical therapy. * Get up and walk several times each day.~ For the first four weeks, try not to stand or walk for more than one hour at a time. If you do stand or walk for more than one hour, you will not hurt anything, but your leg will likely swell.~~ * As you feel comfortable, you may change from the walker or crutches to a cane and~then to independent walking. Medications: * Narcotic You will likely be sent home from the hospital with a prescription for the narcotic pain medication that worked best throughout your stay. * Cefadroxil -take the antibiotic twice a day for 10 days to prevent infection. * Aspirin Most patients will be required to take Aspirin 81mg twice a day for 6 weeks after surgery. This is obtained [id number] and a prescription is not necessary. * Other medications may be prescribed for specific circumstances. If you have any questions, please call the office at . * Resume previous home medications unless otherwise instructed TEDs/Elastic Stockings: The white elastic stockings help limit swelling and prevent blood clots from forming in your legs. The more you wear them, the more they work. Wear them for six weeks. Dressing Care: Leave the Silverlon dressing in place for 7 days. After 7 days you may remove the dressing. If the incision is not draining then you may leave the piper open to air. If there is a little bit of drainage or if the piper are getting stuck on your clothing then cover the incision with a dry dressing. The piper will be removed at your 2 week follow-up appointment. Showering: You may shower with the Silverlon dressing in place. Do not let the shower spray hit the dressing directly. Pat the Silverlon dressing dry. If the dressing becomes wet underneath, then simply remove the dressing. Keep the incision dry until you are 7 days out from the day of surgery. After 7 days you may remove the Silverlon dressing and shower with the piper exposed. Let soapy water run over the piper and pat them dry. Do not scrub or soak the incision. Things To Watch For: * Drainage from the incision site that occurs more than one week after your surgery. * Increased redness at the incision site. * Fever above 102 degrees Fahrenheit. * Unusual chest pain or shortness of breath. * Call [facility] at with any of the above problems Follow-Up Visit: Follow-up with Dr. Bull's PA (Almas Diaz) 2-3 weeks after your day of surgery. He will remove your piper and answer any questions. If you have any additional questions or concerns, Dr Bull is usually in the office at the same time and will be available An appointment was probably scheduled when you signed-up for surgery in the office. If you have any questions call Office Instructions: More detailed instructions as well as Frequently Asked Questions were provided in a folder by our office when you signed-up for surgery. Please review these instructions when you get home. If you have any further questions or concerns, please feel free to call the office at [phone] Pending Studies at Discharge: No Stand-Alone Forms: My [facility], Smoking Cessation Medications and DC Order Prescriptions: New oxycodone 5 mg Tablet 5 mg PO Q4H PRN (Reason: pain) Qty: 30 0RF cefadroxil 500 mg capsule 500 mg PO BID 10 Days Qty: 20 0RF Continued nitroglycerin 0.4 mg tablet, sublingual 0.4 mg SL Q5M PRN (Reason: Angina) Qty: 25 5RF rosuvastatin 40 mg tablet 40 mg PO QAM Qty: 90 3RF ibuprofen 600 mg tablet 600 mg PO BID PRN (Reason: pain) Qty: 60 3RF pantoprazole 40 mg tablet,delayed release (DR/EC) 40 mg PO QAM multivitamin Tablet 1 tab PO DAILY Changed aspirin 81 mg Tablet,Delayed Release (Dr/Ec) 81 mg PO BID 42 Days Qty: 0 0RF Discharge Orders: Discharge Order (Routine); Ordered 01/17/24 Ordered By: Almas Bull Admission Data Admit Date/Time: 01/16/24 08:25 Attending Provider: Almas Bull Admit Provider: Almas Bull Primary Care Provider: Fernando Perdomo Other Providers: [facility]
== END 2024-01-17 11:40 | disposition home or self-care (01) ==
LOC: 3E 05:09 → ASU 05:09